=== PATIENT | female | born 1950 | race Caucasian/White ===

== ENCOUNTER 2019-11-01 13:50 | Outpatient (CLI) | payer MEDICARE, OTHER, SELFPAY ==
--- NOTE | 2019-11-01 15:14 | ECG_ITS ---
Measurements Intervals [place] Rate: 49 P: 39 W[place]: 204 QRS: -12 QRSD: 99 T: 30 QT: 424 QTc: 385 Interpretive Statements SINUS BRADYCARDIA WITH FIRST DEGREE AV BLOCK POOR R WAVE PROGRESSION, ANTERIOR LEADS BORDERLINE T WAVE ABNORMALITY- ANTERIOR LEADS BASELINE ARTIFACT- I, III, AVR, AVL ABNORMAL ECG Electronically Signed On 11-01-2019 15:29:38 CDT by Kameron Almanza D.O.
[2019-11-01 15:32] LABS: Basophils Percent Auto 0.5 % (0.2-1.2); Eosinophils Absolute Auto 0.3 K/mm3 (0-0.3); Eosinophils Percent Auto 4.3 % (0-4.4); Hematocrit 40.6 % (37.0-47.0); Hemoglobin 13.4 g/dL (12.0-15.0); Immature Granulocyte Absolute 0.01 K/mm3 (0.00-0.031); Immature Granulocyte Percent A 0.2 % (0-0.5); Lymphocytes Absolute Auto 2.29 K/mm3 (0.9-3.2); Lymphocytes Percent Auto 35.3 % (18.3-44.2); Mean Corpuscular Hemoglobin 31.2 pg (26-34); Mean Corpuscular Volume 94.6 fl (80-100); Mean Platelet Volume 9.9 fl (7.4-10.4); Monocytes Absolute Auto 0.4 K/mm3 (0.1-0.6); Monocytes Percent Auto 6.8 % (2.6-8.5); Neutrophils Absolute Auto 3.4 K/mm3 (1.3-6.7); Neutrophils Percent Auto 52.9 % (45.5-73.1); Platelet Count Result 157 k/mm3 (150-375); Red Blood Count 4.29 M/mm3 (4.2-5.4); Red Cell Distribution Width 12.8 % (11.5-14.5); White Blood Count 6.5 K/mm3 (4.5-10.0)
[2019-11-01 15:42] LABS: Partial Thromboplastin Time 32.6 SECONDS (22.3-36.8)
[2019-11-01 15:43] LABS: Alkaline Phosphatase 65 U/L (38-126); Anion Gap 5 mmol/L (8-16); Aspartate Amino Transferase 20 U/L (14-36); Bilirubin,Total 0.3 mg/dL (0.2-1.3); Blood Urea Nitrogen 17 mg/dL (7-17); Calcium 8.9 mg/dL (8.4-10.2); Carbon Dioxide 29 mmol/L (22-30); Chloride 103 mmol/L (98-107); Estimated Glomerular Filt Rate > 60; Glucose 98 mg/dL (65-105); Potassium 4.5 mmol/L (3.4-5.0); Sodium 137 mmol/L (137-145)
[2019-11-01 15:59] LABS: INR 1.7; Prothrombin Time 19.7 Seconds (11.1-14.7)
[2019-11-01 16:36] LABS: Alanine Aminotransferase < 4 U/L (4-35)
== END 2019-11-01 13:51 | disposition home or self-care (01) ==
PROVIDERS: PCP Family Medicine; Visit Provider Urology
DX: N81.4 Uterovaginal prolapse, unspecified (principal); Z87.891 Personal history of nicotine dependence; I44.0 Atrioventricular block, first degree
CPT/HCPCS: 36415; 80053; 85025; 85610; 85730; 86850; 86900; 86901; 87077; 87086; 87088; 87186; 93005

== ENCOUNTER 2019-11-04 00:39 | Outpatient (CLI) | payer MEDICARE, OTHER, SELFPAY ==
[2019-11-04 19:29] LABS: SARS-CoV-2 RNA PCR Negative
== END 2019-11-04 00:40 | disposition home or self-care (01) ==
LOC: ANHCOVIDDT 00:39
PROVIDERS: Visit Provider Urology
DX: Z01.812 Encounter for preprocedural laboratory examination (principal); Z20.828 Contact with and (suspected) exposure to other viral communicable diseases
CPT/HCPCS: 87635; C9803; U0003

== ENCOUNTER 2019-11-07 00:41 | Day surgery (SDC) | payer MEDICARE, OTHER, SELFPAY ==
[2019-11-01 14:18] VITALS: BMI 26.5
[2019-11-01 14:19] VITALS: BP 96/58; PULSE 56; RESP 16; TEMP 36.1; O2SAT 96
--- NOTE | 2019-11-02 07:56 | PM.IMHP ---
H&P: HPI History of Present Illness Date/Time: 11/02/19 07:56 Chief complaint: Uterine Prolapse, Stress Incontinence Narrative: Francisco Qiu is a 69 year old female Who is admitted for robotic supracervical hysterectomy and bilateral salpingo-oophorectomy who as well as a robotic sacral colpopexy. She has known uterine prolapse. She has been on satisfied with the pessary risks and benefits reviewed including but not exclusive of , aspiration pneumonia, bleeding, transfusion, perforation injury to bowel, bladder, ureters, or other internal organs with need for laparotomy. She voiced good understanding. She had all questions answered. She received the [employer] handout entitled hysterectomy as well as the div in she handout. She asked to proceed Review of Systems Review of Systems: All systems reviewed & are unremarkable except as noted in HPI and below PMFSH Social History Social History Smoking packs per day: 1 Smoking cigarettes per day: 20.0 Years smoked: 30 Smoking pack-years: 30.00 Smoking status: Former smoker Smoking end date: 03/09/06 Alcohol intake: former Substance use: never Spiritual care concerns: No Meds Home Medications and Allergies Home Medications Medication Instructions Recorded Confirmed Type carbidopa-levodopa 1 tablet PO QID 11/01/19 11/01/19 History carboxymethylcellulose sodium 1 drp OPHTHALMIC (EYE) QID 11/01/19 11/01/19 History [TheraTears] dexamethasone [Maxidex] 1 drp LEFTEYE EVERY OTHER DAY 11/01/19 11/01/19 History diphenhydramine HCl [Benadryl] 25 mg PO QAM 11/01/19 11/01/19 History oxycodone-acetaminophen 1 tablet PO QID 11/01/19 11/01/19 History primidone 50 mg PO BID 11/01/19 11/01/19 History ropinirole [Requip] 5 mg PO QID 11/01/19 11/01/19 History timolol maleate 1 drp LEFTEYE DAILY 11/01/19 11/01/19 History warfarin 1 mg PO DAILY 11/01/19 11/01/19 History warfarin 8 mg PO DAILY 11/01/19 11/01/19 History Allergies Allergy/AdvReac Type Severity Reaction Status Date / Time No Known Allergies Allergy Unverified 08/25/20 14:06 Vital Signs Vital Signs - 24 hr 11/01/19 14:19 Temperature 96.9 F L Pulse Rate 56 L Respiratory Rate 16 Blood Pressure 96/58 L Pulse Oximetry 96 Exam Const: General: no acute distress Eyes: General: appearance normal, both eyes and all related structures Neck: Neck: supple and no JVD Thyroid: thyroid normal Resp: Effort & Inspection: normal respiratory effort Auscultation: clear to auscultation bilaterally Cardio: Rate: regular rate Rhythm: regular rhythm GI: Inspection: non-distended GI Palp: Yes Soft to palpation, No Tenderness to palpation present (GI) and No Guarding due to palpation present (GI) Auscultation: normal bowel sounds : General: Yes bladder normal to inspection External Female Exam: Abnormal introitus Speculum Exam - Vagina: normal appearance of the vagina Bimanual exam- vagina & uterus: uterine mobility normal ( complete uterine pr) and Uterus displaced Bimanual Exam- Adnexa, other: normal adnexae Skin: General skin exam: no rashes or lesions noted Extrem: General: normal to inspection and no edema Psych: Mental Status: mental status grossly normal Affect: normal affect Assessment and Plan Additional Plan impression: Uterine prolapse Plan: Robotic supracervical hysterectomy and bilateral salpingo-oophorectomy
--- NOTE | 2019-11-06 07:33 | P.HP_ITS ---
H&P: HPI History of Present Illness Date/Time: 11/06/19 07:33 Chief complaint: Uterine Prolapse, Stress Incontinence Narrative: Francisco Qiu is a 69 year old female with uterine prolapse and RAMAN [facility] Social History Social History Smoking packs per day: 1 Smoking cigarettes per day: 20.0 Years smoked: 30 Smoking pack-years: 30.00 Smoking status: Former smoker Smoking end date: 03/09/06 Alcohol intake: former Substance use: never Spiritual care concerns: No Meds Home Medications and Allergies Home Medications Medication Instructions Recorded Confirmed Type carbidopa-levodopa 1 tablet PO QID 11/01/19 11/01/19 History carboxymethylcellulose sodium 1 drp OPHTHALMIC (EYE) QID 11/01/19 11/01/19 History [TheraTears] dexamethasone [Maxidex] 1 drp LEFTEYE EVERY OTHER DAY 11/01/19 11/01/19 History diphenhydramine HCl [Benadryl] 25 mg PO QAM 11/01/19 11/01/19 History oxycodone-acetaminophen 1 tablet PO QID 11/01/19 11/01/19 History primidone 50 mg PO BID 11/01/19 11/01/19 History ropinirole [Requip] 5 mg PO QID 11/01/19 11/01/19 History timolol maleate 1 drp LEFTEYE DAILY 11/01/19 11/01/19 History warfarin 1 mg PO DAILY 11/01/19 11/01/19 History warfarin 8 mg PO DAILY 11/01/19 11/01/19 History Allergies Allergy/AdvReac Type Severity Reaction Status Date / Time No Known Allergies Allergy Unverified 11/01/19 14:06 Exam Const: General: no acute distress HENMT: Mouth: Yes moist mucous membranes Eyes: EOM: EOMs intact bilaterally Neck: Neck: supple Resp: Effort & Inspection: normal respiratory effort GI: GI Palp: Yes Soft to palpation : Other: [place] at +5 Skin: General skin exam: normal color Extrem: General: normal to inspection Assessment and Plan Assessment and plan (1) Uterine prolapse: Code(s): N81.4 - Uterovaginal prolapse, unspecified Status: Acute Assessment and Plan: Robotic Colpopexy (2) RAMAN (stress urinary incontinence, female): Code(s): N39.3 - Stress incontinence (female) (male) Status: Acute Assessment and Plan: Urethral sling
[2019-11-07] VITALS (17 sets, daily range): BP systolic 109–146; BP diastolic 67–99; PULSE 51–80; RESP 13–22; TEMP 35.8–36.9; O2SAT 93–100
--- NOTE | 2019-11-07 06:19 | WPDHPUPDATE1 ---
History and Physical Update Update Date/Time: 11/07/19 06:19 History and Physical has been reviewed, including an updated exam of the patient. There are NO changes in the patient's condition. Risks, benefits, and alternatives have been discussed and questions answered. Patient agrees to proceed with procedure.
--- NOTE | 2019-11-07 07:26 | WPDHPUPDATE1 ---
History and Physical Update Update Date/Time: 11/07/19 07:26 History and Physical has been reviewed, including an updated exam of the patient. There are NO changes in the patient's condition. Risks, benefits, and alternatives have been discussed and questions answered. Patient agrees to proceed with procedure.
--- NOTE | 2019-11-07 09:20 | WPDANESEPP ---
Anes - Eval Pre Procedure Procedure: Operation Date: 11/07/19 12:00 Proposed Procedures p Robotic Sacrocolpopexy With Urethral Sling - Ede Walsh MD s Robotic Assisted Supracervical Hysterectomy, Bilateral Salpingo-Oophorectomy - Cesar Gardner MD Date/Time: 11/07/19 09:20 Pre Op Diagnosis: Uterine Prolapse, Stress Incontinence Patient Data Age: 69 Gender: F Height: 5 ft 3 in Weight: 67.9 kg Last Vital Signs Temp 96.9 F L 11/01/19 14:19 Pulse 56 L 11/01/19 14:19 Resp 16 11/01/19 14:19 BP 96/58 L 11/01/19 14:19 Pulse Ox 96 11/01/19 14:19 Allergies Allergy/AdvReac Type Severity Reaction Status Date / Time No Known Allergies Allergy Unverified 11/01/19 14:06 Home Medications Medication Instructions Recorded Confirmed Type carbidopa-levodopa 1 tablet PO QID 11/01/19 11/01/19 History carboxymethylcellulose sodium 1 drp OPHTHALMIC (EYE) QID 11/01/19 11/01/19 History [TheraTears] dexamethasone [Maxidex] 1 drp LEFTEYE EVERY OTHER DAY 11/01/19 11/01/19 History diphenhydramine HCl [Benadryl] 25 mg PO QAM 11/01/19 11/01/19 History oxycodone-acetaminophen 1 tablet PO QID 11/01/19 11/01/19 History primidone 50 mg PO BID 11/01/19 11/01/19 History ropinirole [Requip] 5 mg PO QID 11/01/19 11/01/19 History timolol maleate 1 drp LEFTEYE DAILY 11/01/19 11/01/19 History warfarin 1 mg PO DAILY 11/01/19 11/01/19 History warfarin 8 mg PO DAILY 11/01/19 11/01/19 History Patient hx anesthesia problems: none Family hx anesthesia problems: none PMFSH Past Medical History Medical History (Updated 11/07/19 @ 09:25 by Marshal Foster CRNA) Arthritis Back pain DDD (degenerative disc disease) Depression DVT (deep venous thrombosis) Factor 5 Leiden mutation, heterozygous Hiatal hernia History of TIA (transient ischemic attack) Parkinsons disease Scoliosis RAMAN (stress urinary incontinence, female) Uterine prolapse Surgical History Surgical History Previous back surgery Social History Social History Smoking packs per day: 1 Smoking cigarettes per day: 20.0 Years smoked: 30 Smoking pack-years: 30.00 Smoking status: Former smoker Smoking end date: 03/09/06 Alcohol intake: former Alcohol use details: SOCIALLY 50 YEARS AGO Substance use: never Living arrangements: alone Spiritual care concerns: No Exam Day of Procedure 11/07/19 09:20 Patient weight: overweight Neurological: alert and oriented Risks: VR49 SINUS BRADYCARDIA WITH FIRST DEGREE AV BLOCK POOR R WAVE PROGRESSION, ANTERIOR LEADS BORDERLINE T WAVE ABNORMALITY- ANTERIOR LEADS BASELINE ARTIFACT- I, III, AVR, AVLABNORMAL ECG
--- NOTE | 2019-11-07 10:16 | WPDANESEFPP ---
Anes - Eval Final PreProcedure Day of Procedure 11/07/19 10:16 Patient weight: overweight Heart: regular rate and rhythm Lungs: clear to auscultation Airway: Mallampati scale class II Neurological: alert and oriented Last oral intake: >/= 8 hours ASA classification: III Emergent: no Anesthetic plan: proceed Anesthesia type and monitoring: general ETT and standard monitoring Informed Consent: The patient's anesthetic plan and its attendant risks and benefits were discussed with the patient/family/POA. Questions were solicited and answers provided to the satisfaction of the patient/family/POA.
[2019-11-07] MEDS: LACTATED RINGERS 1,000 ML 30 ML IV CONT ×2 (10:33→14:33)
[2019-11-07 10:54] LABS: Prothrombin Time 12.5 Seconds (11.1-14.7)
[2019-11-07 10:55] LABS: Partial Thromboplastin Time 26.4 SECONDS (22.3-36.8)
[2019-11-07] MEDS: HEPARIN SODIUM 5,000 UNITS/ML VIAL 5000 UNITS SUB-Q (11:10)
[2019-11-07] MEDS: metroNIDAZOLE 500 MG/ISO 100ML 500 MG/100 ML BAG 100 MG IVPB ×2 (11:59→19:54)
[2019-11-07] MEDS: ceFAZolin 2 GM/D5W 50 ML 2 GM/50 ML BAG IVPB (11:59)
[2019-11-07] MEDS: BUPIVACAINE/EPINEPHRINE 0.25% 50 ML VIAL INFILTRATE (12:41)
--- NOTE | 2019-11-07 12:47 | P.OP_ITS ---
Procedure Note - Detailed Date of procedure: 11/07/19 Pre-op diagnosis: Uterine Prolapse, Stress Incontinence Surgeon: Cesar Gardner MD Postop diagnosis: Uterine prolapse / stress urinary incontinence Procedure: Robotic supracervical hysterectomy and bilateral salpingo- oophorectomy EBL: 5cc Anesthesia: General endotracheal Complications: None. This was done in conjunction with a robotic sacral colpopexy and sling with Dr. Walsh Findings: Uterine prolapse /benign ovaries and tubes Description of procedure: The patient is prepped draped in the normal sterile fashion and placed in the dorsal lithotomy position. Under excellent general endotracheal anesthesia weighted speculum was placed in the posterior fornix of vagina. Anterior lip of the cervix grasped with a single-tooth tenaculum and the Lucero's cannula inserted to the cervix. This was attached to the single- tooth to be used for uterine manipulation. Next the [address] [place] [address] lauren proceeded with placing the ports and docking the robot. Please see his operative report for full details. Attention was Was turned to the group home counselor. There are many adhesions in the right lower quadrant and these were sharply dissected using occasional cautery to help visualized. The left round ligament was grasped, burned, cut and anteriorly a bladder flap was formed reflecting the bladder caudally from the cervix and uterus to the opposite round ligament was clamped, burned, cut. Next the left infundibulopelvic structure was skeletonized to remove the left ovary and tube this was serially clamped, burned, cut and brought to the level of the previously cut round ligament. In like fashion the right infundibulopelvic structures were grasped, burned, cut and brought to the level of the previously cut round ligament next the cardinal and broad ligaments on the left were serially skeletonized these were clamped, burned, cut and brought down the lateral edge of the uterus. In like fashion the cardinal ligaments on the right were serially clamped, burned, cut and brought to level of of the uterine vessels the uterine vessels on the right were then grasped, burned, cut. In like fashion the uterine vessels on the left were serially clamped, burned, cut. A supracervical incision was made and the uterus ovaries and tubes were placed in an Endo-Catch. Blood loss was estimated at5cc to this point and Dr. Walsh began his portion of the procedure. There were no complications to this time.
--- NOTE | 2019-11-07 14:32 | PM.PROC ---
Procedure Note - Detailed Date of procedure: 11/07/19 Pre-op diagnosis: Uterine Prolapse, Stress Incontinence Uterine prolapse Stress urinary incontinence Post-op diagnosis: same Procedure performed: Robotic assisted laparoscopic sacral colpopexy Mid urethral sling (transobturator sling) Cystoscopy Description of procedure: She understood the risks of bleeding, infection, damage to surrounding organs, bowel injury, bowel obstruction, recurrence of prolapse, persistent or recurrent stress incontinence, mesh related complications including exposure and extrusion, diskitis, postoperative voiding dysfunction including incontinence and retention, hip and leg pain, dyspareunia, and she agrees to proceed. She was correctly identified and informed consent was obtained. She was brought to the operating room. She was given general anesthesia. She was placed in the dorsal lithotomy position. All pressure points were padded. She was given appropriate perioperative antibiotics. Time-out performed. I anesthetized the skin 3 fingerbreadths cephalad to the umbilicus. I incised the skin. I dissected down to locate the fascia. I grasped the fascia with Antonio clamps. I entered the fascia sharply. I placed Vicryl sutures for later fascial closure. I placed a midline trocar. Under direct vision 2 additional trocars were placed on the right and left upper quadrant. She was placed in steep Trendelenburg and the robot was docked. Her general ophthalmologist performed the portion of the procedure and left the specimen and a sac which was extracted. I then sat at the console. With the Sizer in the vagina I created a plane on the anterior and posterior vaginal wall. This was done for several cm taking great care not to injure the vagina, bladder, or rectum. I introduced the mesh into the abdomen. I sewed the anterior leaflet of mesh on the anterior vaginal wall and posterior leaf of the mesh on the posterior vaginal wall with several [place]-Christopher sutures taking great care not to go through and through. I then reflected the colon laterally. I opened up the posterior peritoneum over the sacral promontory. I carried this into the cul-de-sac. I kept the ureters lateral. I freed up the edges. I located the anterior longitudinal ligament of the sacrum. I tensioned the mesh appropriately. I did a vaginal exam to ensure prolapse reduction without undue tension. I then sewed the proximal leaflet of mesh onto the ligament with 3 sutures of 2 0 [place]-Christopher. Next the mass was meticulously retroperitonealized with a running 2 0 Monocryl suture. I allowed the colon to go back into its normal anatomic location. There is no signs of any impingement or stricturing. The abdomen was exited. Fascia was closed. Skin was closed with Monocryl and glue. She was repositioned and prepped for urethral sling. I marked out the thigh incisions. I anesthetize the skin and made those incisions. I anesthetized the anterior vaginal wall over the mid urethra. I made a 1 cm incision. I dissected out laterally taking great care not to injure the urethra or the vaginal wall. I next passed the helical trocars to 1st on the left and then on the right. This was done from the thigh incision towards the vaginal incision. The sling was connected to the trocars and brought out through the thigh incision. I tensioned the sling appropriately. I cut and removed the plastic sheaths. I then closed the incision with 2 0 Vicryl. I then performed cystoscopy. The bladder is examined. There was no tumors, stones, foreign bodies, surgical artifact. Both ureters were seen to excrete clear yellow urine. There is no surgical artifact in the urethra. Catheter was then replaced. She was awakened and transferred to the PACU in stable condition. Anesthesia: GLMA Surgeon: Ede Walsh MD Drains: Yes (Dempsey catheter) Packing: Yes Complications: No immediate complications Condition: stable Disposition: PACU
[2019-11-07] MEDS: ONDANSETRON INJ 4 MG/2 ML VIAL IV PUSH (14:53)
[2019-11-07] MEDS: MIDAZOLAM HCL 2 MG/2 ML VIAL 1 MG IV PUSH (15:01)
--- NOTE | 2019-11-07 15:45 | SUR.PHASEI ---
1505: Dr. Strickland at the bedside to assess patient.
--- NOTE | 2019-11-07 16:39 | SUR.PHASEI ---
Difficult to get accurate BPs and pulse ox readings d/t movement from Parkinson's.
--- NOTE | 2019-11-07 16:48 | PC.NURSE ---
This patient, Francisco Qiu, was received from PACU on 11/07/19 at 1648. Patient/family oriented to unit policies and routines
[2019-11-07] MEDS: KCL 20 MEQ/D5/0.45% SOD CHL 1,000 ML 100 ML IV CONT (17:21)
[2019-11-07] MEDS: MORPHINE SULFATE 2 MG/ML INJ IV PUSH (17:21)
[2019-11-07] MEDS: CARBIDOPA/LEVODOPA 25/250 MG TABLET 1 TABLET PO (20:04)
[2019-11-07] MEDS: rOPINIRole HCL 1 MG TABLET 5 MG PO (20:07)
[2019-11-07] MEDS: oxyCODONE/ACETAMINOPHEN 5-325 MG TABLET 1 TABLET PO (20:15)
[2019-11-07] MEDS: KETOROLAC 15 MG/ML VIAL (*BKC) IV PUSH (20:15)
[2019-11-08 00:45] VITALS: BP 100/55; PULSE 80; RESP 14; TEMP 36.6; O2SAT 95
[2019-11-08] MEDS: ACETAMINOPHEN 325 MG TABLET 650 MG PO (00:51)
[2019-11-08] MEDS: KCL 20 MEQ/D5/0.45% SOD CHL 1,000 ML 100 ML IV CONT (02:19)
[2019-11-08] MEDS: metroNIDAZOLE 500 MG/ISO 100ML 500 MG/100 ML BAG 100 MG IVPB ×2 (03:14→11:21)
[2019-11-08] MEDS: KETOROLAC 15 MG/ML VIAL (*BKC) IV PUSH ×2 (04:22→09:59)
[2019-11-08 04:25] VITALS: BP 97/59; PULSE 60; RESP 14; TEMP 36.6; O2SAT 94
[2019-11-08 04:30] VITALS: PULSE 60; RESP 14; O2SAT 94
--- NOTE | 2019-11-08 06:36 | PM.DS ---
DS: Admitting Diagnosis Admitting Diagnosis Admitting Diagnosis: Uterine Prolapse, Stress Incontinence DS: Summary Time Spent with Patient Time attestation: Total time spent providing and/or coordinating discharge services: Exam Const: General: no acute distress Eyes: General: appearance normal, both eyes and all related structures Neck: Neck: supple and no JVD Thyroid: thyroid normal Resp: Effort & Inspection: normal respiratory effort Auscultation: clear to auscultation bilaterally Cardio: Rate: regular rate Rhythm: regular rhythm GI: Inspection: non-distended GI Palp: Yes Soft to palpation, No Tenderness to palpation present (GI) and No Guarding due to palpation present (GI) Auscultation: normal bowel sounds : General: Yes bladder normal to palpation External Female Exam: normal external appearance Speculum Exam - Vagina: normal vaginal discharge and No vaginal bleeding Speculum Exam - Cervix: nontender Bimanual exam- vagina & uterus: bladder normal to palpation and No Cervical tenderness present OB/external & speculum: No vaginal bleeding Skin: General skin exam: no rashes or lesions noted Extrem: General: normal to inspection and no edema Psych: Mental Status: mental status grossly normal Affect: normal affect DS: Data Data Completed and Pending Pending studies at discharge: Pending at discharge 11/07/19 12:49 Surgical [PTH] Routine Labs on day of discharge: Labs from last 24 hours 11/07/19 10:26 PT 12.5 D INR 1.0 APTT 26.4 Discharge Plan Discharge Patient Disposition: Home, Self-Care Discharge Instructions: No lifting >20lb, exercise for 6 weeks No tub bath or pool for 2 weeks No intercourse for 6 weeks Stand Alone Forms: General Discharge Instructions Follow-up/Referrals: Ede Walsh MD [Physician] - (in 1 week and in 6 weeks) Discharge Medications: New docusate sodium [Colace] 100 mg capsule 100 mg PO BID Qty: 60 RF: 0 oxycodone-acetaminophen [Percocet] 10-325 mg tablet 1 tablet PO Q6H PRN (Reason: pain) Qty: 20 RF: 0 Continued primidone 50 mg tablet 50 mg PO BID RF: 0 carbidopa-levodopa 25-250 mg tablet 1 tablet PO QID RF: 0 oxycodone-acetaminophen 10-325 mg tablet 1 tablet PO QID RF: 0 diphenhydramine HCl [Benadryl] 25 mg Capsule 25 mg PO QAM RF: 0 Maxidex 0.1 % drops,suspension 1 drp LEFTEYE EVERY OTHER DAY RF: 0 timolol maleate 0.5 % drops 1 drp LEFTEYE DAILY RF: 0 ropinirole [Requip] 5 mg tablet 5 mg PO QID RF: 0 TheraTears 0.25 % Dropperette 1 drp OPHTHALMIC (EYE) QID RF: 0 Held warfarin 4 mg tablet 8 mg PO DAILY RF: 0 Hold Instructions: Resume on 11/10/19. warfarin 1 mg tablet 1 mg PO DAILY RF: 0 Hold Instructions: Resume on 11/09/19.
--- NOTE | 2019-11-08 06:37 | PM.OBPNVD ---
OB - PN: Subj Subjective Date/time seen: 11/08/19 06:37 Patient comments: no complaints and pain well controlled OB - PN: Obj Data Labs Labs: Laboratory Results - last 24 hr 11/07/19 10:26 PT 12.5 D INR 1.0 APTT 26.4 OB - PN A/P Plan day: 1 Plan: routine care and follow up 6 weeks (4 weeks) Time Spent With Patient Time: Total time spent is greater than 50% in coordination of care (as documented) at patient's floor/unit and/or counseling patient: Time with patient: less than 15 minutes Review of Systems Review of Systems: All systems reviewed & are unremarkable except as noted in HPI and below Exam Const: General: no acute distress Eyes: General: appearance normal, both eyes and all related structures Neck: Neck: supple and no JVD Thyroid: thyroid normal Resp: Effort & Inspection: normal respiratory effort Auscultation: clear to auscultation bilaterally Cardio: Rate: regular rate Rhythm: regular rhythm GI: Inspection: normal to inspection and incision (cdi) Percussion: Yes normal to percussion : General: Yes bladder normal to palpation External Female Exam: normal external appearance Speculum Exam - Vagina: normal vaginal discharge and No vaginal bleeding Speculum Exam - Cervix: nontender Bimanual exam- vagina & uterus: bladder normal to palpation and No Cervical tenderness present OB/external & speculum: No vaginal bleeding Skin: General skin exam: no rashes or lesions noted Extrem: General: normal to inspection and no edema Psych: Mental Status: mental status grossly normal Affect: normal affect
[2019-11-08] MEDS: DOCUSATE SODIUM 100 MG CAPSULE PO (07:24)
[2019-11-08] MEDS: oxyCODONE/ACETAMINOPHEN 5-325 MG TABLET 1 TABLET PO ×2 (07:25→13:03)
--- NOTE | 2019-11-08 07:42 | WPDANESPN ---
Anes - Prog Note Post-Op Date/Time: 11/08/19 07:42 Cardiovascular status: normal Respiratory status: normal Airway patency: baseline Mental status: baseline Post-Op hydration status: normal Vital Signs: Last Vital Signs Temp 36.6 C 11/08/19 04:25 Pulse 60 11/08/19 04:30 Resp 14 11/08/19 04:30 BP 97/59 L 11/08/19 04:25 Pulse Ox 94 11/08/19 04:30 I/O: Intake & Output 11/07/19 11/07/19 11/08/19 15:59 23:59 07:59 Intake Total 50 760 1120 Output Total 350 600 350 Balance -300 160 770 11/07/19 10:26 PT 12.5 D INR 1.0 APTT 26.4 Post-procedural complaints: none Patient Feedback: Patient satisfied with anesthetic care.
[2019-11-08 07:55] VITALS: BP 111/56; PULSE 54; RESP 20; TEMP 36.3
[2019-11-08] MEDS: CARBIDOPA/LEVODOPA 25/250 MG TABLET 1 TABLET PO ×2 (10:00→13:03)
[2019-11-08] MEDS: rOPINIRole HCL 1 MG TABLET 5 MG PO ×2 (10:01→13:03)
[2019-11-08] MEDS: ENOXAPARIN 30 MG/0.3 ML SYRINGE SUB-Q (10:22)
[2019-11-08] MEDS: PRIMIDONE 50 MG TABLET PO (10:22)
[2019-11-08 13:00] VITALS: BP 153/71; PULSE 94; RESP 22; TEMP 36.8
--- NOTE | 2019-11-08 14:08 | PC.NURSE ---
1250- Entered pt. room. Pt. showing signs of tardie dyskinesia like movement. States she was choking on her chocolate ice cream and had to stick finger down her throat. Pt. spitting up thick mucous. Vitals 153/71, 74, 22. O2 applied at 6L per nasal cannula. 1315- Pt. doing well. States that she gets choked like that at times and it eventually clears. Pulse oximeter 97%. Relaxed and oriented to person, place and time. Dr. Mustapha Donahue notified. Status report given including vital signs and pt. stating that she feels fine and is comfortable with discharge. No further orders received at this time. 1330- Pt. doing well. Ambulated to bathroom with slow steady gait. States that she is looking forward to discharge.
== END 2019-11-08 14:47 | disposition home or self-care (01) ==
LOC: ANHSURGERY 11:47 → ANHOB2 16:47
PROVIDERS: Obstetrics & Gynecology; PCP Family Medicine; Visit Provider Urology
PROC: (CPT 57425; principal; 2019-11-07 12:00)
PROC: 0UT94ZZ Resection of Uterus, Percutaneous Endoscopic Approach (ICD-10-PCS; CPT 57425; 2019-11-07 12:00)
DX: N81.4 Uterovaginal prolapse, unspecified (principal); N39.3 Stress incontinence (female) (male); N84.0 Polyp of corpus uteri; D39.11 Neoplasm of uncertain behavior of right ovary; G20 Parkinson's disease; D68.51 Activated protein C resistance; Z86.73 Personal history of transient ischemic attack (TIA), and cerebral infarction without residual deficits; Z86.718 Personal history of other venous thrombosis and embolism; Z79.01 Long term (current) use of anticoagulants; Z87.891 Personal history of nicotine dependence; Z79.899 Other long term (current) drug therapy
CPT/HCPCS: 58542; 57425; 57288; S2900; 36415; 85610; 85730; 88307; 99199; A9270; C1758; C1769; C1771; C1781; J0690; J1100; J1644; J1650; J1885; J2250; J2270; J2405; J2704; J2710; J3010; J3480; J7030; J7120

== ENCOUNTER 2019-11-18 10:26 | Inpatient (IN) | payer MEDICARE, OTHER, SELFPAY ==
[2019-11-18] VITALS (16 sets, daily range): BP systolic 104–143; BP diastolic 58–75; PULSE 45–81; RESP 13–23; TEMP 36.1–36.3; O2SAT 90–99
--- NOTE | ~2019-11-18 | US_ITS ---
EXAMINATION: US soft tissue abdomen DATE: 11/28/2019 15:13 INDICATION: Right lower quadrant abdominal mass. TECHNIQUE: Multiple grayscale and Doppler ultrasound images of the abdomen were obtained. COMPARISON: CT abdomen and pelvis 11/18/2019 FINDINGS: In the right lower quadrant of the abdomen, there is a 2.7 x 1.5 cm mixed cystic and solid hyperechoic subcutaneous mass. The cystic component measures 2.3 x 1.1 x 1.6 cm. IMPRESSION: 1. Mixed solid and cystic subcutaneous mass in right lower quadrant, new from 11/18/2019, likely a hep catracho injection site. Reviewed, dictated and finalized at location [facility]. IMPRESSION: 1. Mixed solid and cystic subcutaneous mass in right lower quadrant, new from , likely a heparin injection site.
--- NOTE | ~2019-11-18 | CT_ITS ---
EXAMINATION: CT abdomen pelvis w con DATE: 11/18/2019 12:57 INDICATION: Abdominal pain. Bladder surgery, hysterectomy November 07, 2019 TECHNIQUE: Computed tomography (CT) of the abdomen and pelvis was performed with 100 cc Omnipaque 350 intravenous contrast. Automated exposure control and iterative reconstruction technique were employe d. Exam dose: 459.15 mGy-cm total exam DLP. COMPARISON: None. FINDINGS: There is subcutaneous emphysema of the left and right chest and abdominal mora. No pneumot horax or pneumomediastinum is identified in the included lower thoracic images. There is minimal discoid atelectasis or scarring in the lower lung zones. Normal heart size. No pericardial or pleural effusion. There is a large hiatal hernia. Diffuse hepatic steatosis. No hepatic space-occupying mass lesion. The gallbladder appears unremarkab le. No bile duct or pancreatic duct dilatation. No pancreatic mass lesion or calcification. 1.35 x 2.2 cm left adrenal mass, most likely an adrenal adenoma if there is no history of primary mal ignancy. 7 mm upper pole left renal cyst. Pinpoint nonobstructing lower pole left renal calculus. 4.5 mm upper pole right renal cyst. 4 x 4.5 cm right renal cyst. No left or right ureteral calculus or hydroureteronephrosis. No abdominal aortic aneurysm. No intraperitoneal or retroperitoneal or pelvic mass lesion or adenopat hy or ascites is evident. Status post hysterectomy. There is mild air in the nondependent urinary bladder and mild diffuse thic kening of the urinary bladder wall. There is some matted small bowel loops in the lower midpelvis without intervening fat tissue, but the re is no apparent bowel obstruction, bowel wall thickening, pneumatosis or intraperitoneal free air. Normal appendix. There is severe anterior wedge compression fracture deformity of T9, with sclerosis. There is mild compression fracture deformity of L1 and moderate compression fracture deformity of L5 with cupping of the superior vertebral endplates. There is severe degenerative disease at L5-S1. IMPRESSION: Extensive subcutaneous emphysema of the chest and abdominal mora Large hiatal hernia Diffuse hepatic steatosis Probable 1.3 x 2.2 cm left adrenal adenoma Bilateral renal cysts Pinpoint nonobstructing lower pole left renal calculus Status post hysterectomy Multiple compression fracture deformities of the thoracic and lumbar spine Reviewed, dictated and finalized at [facility]. Reviewed, dictated and finalized at location [facility].
[2019-11-18 11:01] LABS: Basophils Percent Auto 0.2 % (0.2-1.2); Eosinophils Absolute Auto 0.2 K/mm3 (0-0.3); Eosinophils Percent Auto 1.7 % (0-4.4); Hematocrit 38.9 % (37.0-47.0); Hemoglobin 12.9 g/dL (12.0-15.0); Immature Granulocyte Absolute 0.04 K/mm3 (0.00-0.031); Immature Granulocyte Percent A 0.5 % (0-0.5); Lymphocytes Absolute Auto 1.49 K/mm3 (0.9-3.2); Lymphocytes Percent Auto 17.1 % (18.3-44.2); Mean Corpuscular HGB Conc 33.2 g/dl (32-36); Mean Corpuscular Hemoglobin 30.9 pg (26-34); Mean Corpuscular Volume 93.3 fl (80-100); Monocytes Absolute Auto 0.5 K/mm3 (0.1-0.6); Monocytes Percent Auto 5.2 % (2.6-8.5); Neutrophils Absolute Auto 6.5 K/mm3 (1.3-6.7); Neutrophils Percent Auto 75.3 % (45.5-73.1); Platelet Count Result 286 k/mm3 (150-375); Red Blood Count 4.17 M/mm3 (4.2-5.4); Red Cell Distribution Width 13.1 % (11.5-14.5); White Blood Count 8.7 K/mm3 (4.5-10.0)
[2019-11-18 11:07] LABS: Prothrombin Time 22.4 Seconds (11.1-14.7)
[2019-11-18 11:08] LABS: Partial Thromboplastin Time 32.2 SECONDS (22.3-36.8)
[2019-11-18 11:10] LABS: Alanine Aminotransferase 8 U/L (4-35); Alkaline Phosphatase 64 U/L (38-126); Anion Gap 8 mmol/L (8-16); Aspartate Amino Transferase 17 U/L (14-36); Bilirubin,Total 0.4 mg/dL (0.2-1.3); Blood Urea Nitrogen 16 mg/dL (7-17); Calcium 8.9 mg/dL (8.4-10.2); Carbon Dioxide 24 mmol/L (22-30); Chloride 105 mmol/L (98-107); Estimated CRCL calculation 62 ml/min; Estimated Glomerular Filt Rate > 60; Glucose 122 mg/dL (65-105); Lipase 203 U/L (23-300); Sodium 137 mmol/L (137-145)
--- NOTE | 2019-11-18 12:15 | ED.GENADULT ---
HPI - General Adult General Chief complaint: Nausea/Vomiting/Diarrhea Stated complaint: post op n/v Time Seen by Provider: 11/18/19 12:15 Source: patient and family Mode of arrival: ambulatory Limitations: no limitations History of Present Illness HPI narrative: 69 years old white female presents with nausea and vomiting started overnight, last vomiting was 9 AM this morning. Patient denies any fever, chills neurology like no o wheeze, coughing or shortness of breath. Patient also denies any diarrhea. Patient is status post hysterectomy and bladder tuck on November 06. Related Data Home Medications Medication Instructions Recorded Confirmed Maxidex 1 drp LEFTEYE EVERY OTHER DAY 11/01/19 11/07/19 TheraTears 1 drp OPHTHALMIC (EYE) QID 11/01/19 11/07/19 carbidopa-levodopa 1 tablet PO QID 11/01/19 11/07/19 diphenhydramine HCl [Benadryl] 25 mg PO QAM 11/01/19 11/01/19 oxycodone-acetaminophen 1 tablet PO QID 11/01/19 11/07/19 primidone 50 mg PO BID 11/01/19 11/07/19 ropinirole [Requip] 5 mg PO QID 11/01/19 11/07/19 timolol maleate 1 drp LEFTEYE DAILY 11/01/19 11/07/19 warfarin 1 mg PO DAILY 11/01/19 11/07/19 warfarin 8 mg PO DAILY 11/01/19 11/07/19 Allergies Allergy/AdvReac Type Severity Reaction Status Date / Time No Known Allergies Allergy Verified 11/18/19 12:35 Review of Systems Review of Systems: Narrative: CONSTITUTIONAL: Denies fever, chills, or sweats. EYES: Denies visual changes, redness, or discharge. ENT: Denies rhinorrhea, congestion, sore throat, or otalgia. CARDIOVASCULAR: Denies chest pain, palpitations, or edema. RESPIRATORY: Denies cough or dyspnea. GASTROINTESTINAL: Denies abdominal pain, nausea, vomiting, or diarrhea. GENITOURINARY: Denies dysuria or hematuria. SKIN: Denies rash or itching. MUSCULOSKELETAL: Denies back pain, joint pain, or myalgia. NEUROLOGIC: Denies headache, numbness, or weakness. PSYCHIATRIC: Denies anxiety or depression. [facility] Past Medical History Medical History Arthritis Back pain DDD (degenerative disc disease) Depression DVT (deep venous thrombosis) Factor 5 Leiden mutation, heterozygous Hiatal hernia History of TIA (transient ischemic attack) Parkinsons disease Scoliosis RAMAN (stress urinary incontinence, female) Uterine prolapse Surgical History Surgical History Previous back surgery Social History Social History Smoking packs per day: 1 Smoking cigarettes per day: 20.0 Years smoked: 30 Smoking pack-years: 30.00 Smoking status: Former smoker Smoking end date: 03/09/06 Alcohol intake: former Substance use: never Gender identity (if verbalized by the patient): Female Sexual Orientation (if Verbalized by the Patient): Straight or Heterosexual Spiritual care concerns: No Exam Narrative: Exam Narrative: General appearance: Well-developed, well-nourished Skin: Normal color Head: Normocephalic, nontraumatic Eyes: Clear conjunctiva ENT: Oropharynx normal, ears normal, nose normal Neck: Supple, nontender Chest and respiratory: Airway patent, no respiratory distress, no accessory muscle use Heart: Regular rate/rhythm Abdomen: Soft, mild diffuse tenderness, no organomegaly, quiet bowel sounds Vascular: Normal peripheral pulses, normal capillary refill. Musculoskeletal: Normal range of motion, nontender back Neurologic: Alert and oriented ?3, [employer] is normal as tested, no gross motor deficit Course Course Emergency Course: Improving, no active vomiting at this time. My plan to get labs, CT abdomen and pelvis with I
[2019-11-18] MEDS: ONDANSETRON INJ 4 MG/2 ML VIAL IV PUSH (12:45)
[2019-11-18] MEDS: SODIUM CHLORIDE 0.9% IV 1,000 ML 999 ML IV CONT (12:45)
[2019-11-18 13:35] LABS: Add Urine Microscopic? YES; Appearance Urine Cloudy (Clear); Bacteria Urine Trace /hpf; Bilirubin Urine Negative (Negative); Blood Urine Negative (Negative); Color Urine Yellow (Yellow); Glucose Urine UA Negative (Negative); Ketones Urine Trace mg/dL (Negative); Leukocyte Esterase Ur 2+ LEU/UL (Negative); Mucus Urine Few /lpf; Nitrate Urine Positive (Negative); Protein Urine 1+ mg/dL (Negative); Squamous Epithelial Cell Urine Many /hpf (Few); Urobilinogen Urine Negative mg/dL (<2.0); WBC Urine >75 /hpf
[2019-11-18 13:48] LABS: Specific Grav Ur 1.046 (1.001-1.035)
--- NOTE | 2019-11-18 15:50 | ADMGEN ---
This patient, Francisco Qiu, was admitted to Medical Room 257-01. Patient/family oriented to hospital policies and general routines including ID bracelet, bed and alarms, visiting hours, pain management, procedures, bathroom and other care routines, personal items, smoking policy, room service/diet, and visiting hours. Valuables list has been completed. Information on how to activate the Rapid Response Team has been discussed. Patient/Family are encouraged to report perceived risks to care and to ask questions if they do not understand what they are told or what they should do.
[2019-11-18] MEDS: SODIUM CHLORIDE 0.9% IV 1,000 ML 125 ML IV CONT (16:57)
--- NOTE | 2019-11-18 20:38 | PM.IMHP ---
H&P: HPI History of Present Illness Date/Time: 11/18/19 20:38 Chief complaint: Urinary tract infection/vomiting Narrative: Francisco Qiu is a 69 year old female who had a laparoscopic hysterectomy due to uterine prolapse and a robotic assisted laparoscopic sacral colpopexy with bladder sling on 11/07/2019. The patient has chronic back pain and has been on Percocets. The patient stated that last night she did not sleep very well and was having a lot of discomfort in her right flank area. She was not having any urinary symptoms other than the right flank pain. She has had approximately 3 days ago she was checked in the office and did not have urinary tract infection at that time. The patient stated that she had been vomiting most of the night. I explained that the Percocets can make her sick to her stomach which she tells me that she has been on Percocets chronically. CT of the abdomen was read as extensive subcutaneous emphysema of the chest and abdominal mora. Large hiatal hernia. Diffuse hepatic steatosis. Probable 1.3 x 2.2 cm left adrenal adenoma. Bilateral renal cysts. Pinpoint nonobstructive lower pole left renal calculus. Status post hysterectomy. Multiple compression fractures deformity of the thoracic and lumbar spine. The patient was given IV Tylenol, IV fluids, Zofran, and ceftriaxone for the urinary tract infection in the emergency room. The patient stated she did not tried to eat anything and so she got to the floor and then she was able to keep down her regular diet. She has minimal discomfort at this time. Urine culture was sent. The urine has many squamous epithelial cells. And greater than 75,000 wbc's. patient has no fever no chills no cough. No shortness of breath. Date of service 11/18/2019 Review of Systems Review of Systems: All systems reviewed & are unremarkable except as noted in HPI and below Constitutional: Constitutional: Reports as per HPI and Reports no additional constitutional complaints Eyes: Eyes: Reports as per HPI and Reports no additional eye complaints ENT: Reports system reviewed and no additional complaints, except as documented and Reports Normal hearing present Cardiovascular: Cardiovascular: Reports no additional cardiovascular complaints Respiratory: Respiratory: Reports no additional respiratory complaints and Reports no additional respiratory complaints Gastrointestinal: Gastrointestinal: Reports as per HPI and Reports no additional gastrointestinal complaints Musculoskeletal: Musculoskeletal: Reports no additional musculoskeletal complaints Integumentary/Breasts: Skin/Breast: Reports system reviewed and no additional complaints, except as docu and Reports as per HPI Neurologic: Reports system reviewed and no additional complaints, except as documented, Reports as per HPI and Reports Normal hearing present Psychiatric: Psychiatric: Reports no additional psychiatric complaints and Reports as per HPI Endocrine: Endocrine: Reports no additional endocrine complaints Hematologic/Lymphatic: Hematologic/Lymphatic: Reports no additional hematologic/lymphatic complaints Allergic/Immunologic: Allergic/Immunologic: Reports no additional allergic/immunologic complaints [facility] Past Medical History Medical History (Updated 11/18/19 @ 20:47 by Jocelynn Cast NP) Arthritis Back pain Chronic back pain DDD (degenerative disc disease) DVT (deep venous thrombosis) Factor 5 Leiden mutation, heterozygous On Coumadin Hiatal hernia History of TIA (transient ischemic attack) Parkinsons disease Restless leg syndrome Scoliosis RAMAN (stress urinary incontinence, female) Uterine prolapse Surgical History Surgical History (Updated 11/18/19 @ 20:47 by Jocelynn Cast NP) H/O cataract extraction H/O cystoscopy with bladder sling H/O tubal ligation H/O: hysterectomy 11/07/2019 History of corneal transplant left eye Previous back surgery Family History Family History (Up
[2019-11-18 21:27] LABS: Prothrombin Time 22.2 Seconds (11.1-14.7)
[2019-11-18] MEDS: rOPINIRole HCL 1 MG TABLET 5 MG PO (21:56)
[2019-11-18] MEDS: CARBIDOPA/LEVODOPA 25/250 MG TABLET 1 TABLET PO (22:06)
[2019-11-19] MEDS: oxyCODONE/ACETAMINOPHEN 5-325 MG TABLET 1 TABLET PO ×2 (00:54→06:59)
[2019-11-19] MEDS: SODIUM CHLORIDE 0.9% IV 1,000 ML 125 ML IV CONT ×2 (00:55→20:46)
[2019-11-19 05:43] VITALS: BP 102/68; PULSE 51; RESP 18; TEMP 36.3; O2SAT 96
[2019-11-19 06:40] LABS: Basophils Percent Auto 0.5 % (0.2-1.2); Eosinophils Absolute Auto 0.3 K/mm3 (0-0.3); Eosinophils Percent Auto 5.6 % (0-4.4); Hematocrit 33.8 % (37.0-47.0); Hemoglobin 11.1 g/dL (12.0-15.0); Immature Granulocyte Absolute 0.03 K/mm3 (0.00-0.031); Immature Granulocyte Percent A 0.5 % (0-0.5); Lymphocytes Absolute Auto 2.03 K/mm3 (0.9-3.2); Lymphocytes Percent Auto 35.7 % (18.3-44.2); Mean Corpuscular HGB Conc 32.8 g/dl (32-36); Mean Corpuscular Hemoglobin 30.9 pg (26-34); Mean Corpuscular Volume 94.2 fl (80-100); Mean Platelet Volume 9.5 fl (7.4-10.4); Monocytes Absolute Auto 0.3 K/mm3 (0.1-0.6); Monocytes Percent Auto 5.8 % (2.6-8.5); Neutrophils Absolute Auto 2.9 K/mm3 (1.3-6.7); Neutrophils Percent Auto 51.9 % (45.5-73.1); Platelet Count Result 220 k/mm3 (150-375); Red Blood Count 3.59 M/mm3 (4.2-5.4); Red Cell Distribution Width 13.1 % (11.5-14.5); White Blood Count 5.7 K/mm3 (4.5-10.0)
[2019-11-19] MEDS: DOCUSATE SODIUM 100 MG CAPSULE 200 MG PO (07:12)
[2019-11-19 07:45] LABS: Albumin Level 3.1 g/dL (3.5-5.1); Alkaline Phosphatase 48 U/L (38-126); Anion Gap 2 mmol/L (8-16); Aspartate Amino Transferase 14 U/L (14-36); Bilirubin,Total 0.4 mg/dL (0.2-1.3); Blood Urea Nitrogen 10 mg/dL (7-17); Carbon Dioxide 25 mmol/L (22-30); Chloride 109 mmol/L (98-107); Estimated CRCL calculation 62 ml/min; Estimated Glomerular Filt Rate > 60; Glucose 85 mg/dL (65-105); Magnesium 1.9 mg/dL (1.6-2.3); Potassium 4.5 mmol/L (3.4-5.0); Sodium 136 mmol/L (137-145)
[2019-11-19 07:53] LABS: Alanine Aminotransferase < 4 U/L (4-35)
[2019-11-19] MEDS: PRIMIDONE 50 MG TABLET PO ×2 (08:13→18:48)
[2019-11-19] MEDS: CARBIDOPA/LEVODOPA 25/250 MG TABLET 1 TABLET PO ×4 (08:13→20:38)
[2019-11-19] MEDS: rOPINIRole HCL 1 MG TABLET 5 MG PO ×4 (08:14→20:38)
[2019-11-19] MEDS: TIMOLOL MALEATE 0.5% OP SOLN 5 ML BOTTLE 1 DROP LEFT EYE (08:14)
[2019-11-19] MEDS: diphenhydrAMINE HCl CAP 25 MG CAPSULE PO (08:19)
[2019-11-19 10:00] VITALS: BP 117/69; PULSE 60; RESP 15; TEMP 36.5; O2SAT 97
[2019-11-19] MEDS: BISMUTH SUBSALICYLATE 262 MG CHEWABLE TABLET 524 MG PO (12:21)
--- NOTE | 2019-11-19 12:47 | PHAR ---
HOME MED VERIFIED = DEXAMETHASONE SOD PHOS 0.1% OPHTH SOLUTION. SPRIGGER SEALED BOTTLE VERIFIED, NO RX LABEL NO NOTHING ELSE TO CHECK AGAINST.
[2019-11-19 14:00] VITALS: BP 116/68; PULSE 91; RESP 15; TEMP 36.6; O2SAT 100
--- NOTE | 2019-11-19 14:07 | PM.IMPN ---
Progress Note: A&P Assessment and Plan (1) Urinary tract infection: Qualifiers: Hematuria presence: without hematuria Urinary tract infection type: site unspecified Qualified Code(s): N39.0 - Urinary tract infection, site not specified Code(s): N39.0 - Urinary tract infection, site not specified Status: Acute Assessment and Plan: urine culture pending and will check a blood cultures well. Patient was started on Rocephin. 11/19/19 14:07 patient is 69-year-old female presented with complaint of nausea and vomiting is found to have a UTI and being treated with Rocephin, also has a history for she described as a gas which cause her abdominal discomfort patient does use his Mylanta to help will also give her simethicone, clinically stable at the present will follow-up on urine culture and sensitivity and further recommendation to follow (2) Vomiting: Qualifiers: Nausea presence: with nausea Vomiting Intractability: unspecified Vomiting type: unspecified Qualified Code(s): R11.2 - Nausea with vomiting, unspecified Code(s): R11.10 - Vomiting, unspecified Status: Acute Assessment and Plan: Continue with IV fluids overnight patient is tolerating oral intake. Continue with Zofran. (3) Factor 5 Leiden mutation, heterozygous: Code(s): D68.51 - Activated protein C resistance Status: Chronic Assessment and Plan: Patient is chronically on Coumadin and her INR is 2.0. Continue with her Coumadin and check daily PT INR. (4) Restless leg syndrome: Code(s): G25.81 - Restless legs syndrome Status: Chronic Assessment and Plan: Continue with Requip. The patient stated that the SCDs help. (5) Chronic back pain: Code(s): M54.9 - Dorsalgia, unspecified; G89.29 - Other chronic pain Status: Chronic Assessment and Plan: Continue with her Percocet she is able to tolerate them. 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 Subjective Date/time seen: 11/19/19 14:07 patient is 69-year-old female presented with complaint of nausea and vomiting is found to have a UTI and being treated with Rocephin, also has a history for she described as a gas which cause her abdominal discomfort patient does use his Mylanta to help will also give her simethicone, clinically stable at the present will follow-up on urine culture and sensitivity and further recommendation to follow Review of Systems Review of Systems: All systems reviewed & are unremarkable except as noted in HPI and below Exam Const: General: comfortable and no acute distress HENMT: General nose exam: Normal nares present Eyes: Sclera: sclerae normal Neck: Neck: supple Resp: Effort & Inspection: normal respiratory effort Auscultation: clear to auscultation bilaterally Cardio: Rate: regular rate Rhythm: regular rhythm GI: Auscultation: normal bowel sounds Other: diffusely tender Skin: General skin exam: normal color Neuro: Speech: normal speech Sensory Exam: normal sensation Extrem: General: normal to inspection Psych: Affect: normal affect Objective Data Vital Signs Vital Signs: Vital Signs - 24 hr 11/18/19 14:15 11/18/19 14:16 11/18/19 14:17 Temperature Pulse Rate 56 L 51 L 49 L Respiratory Rate 21 H 23 H 16 Blood Pressure 143/73 H Pulse Oximetry 11/18/19 14:30 11/18/19 14:46 11/18/19 14:47 Temperature Pulse Rate 55 L 52 L 59 L Respiratory Rate 14 14 13 Blood Pressure 132/75 Pulse Oximetry 98 98 98 11/18/19 15:00 11/18/19 15:22 11/18/19 15:30 Temperature Pulse Rate 53 L 53 L 55 L Respiratory Rate 13 14 14 Blood Pressure Pulse Oximetry 99 90 94 11/18/19 15:58 11/18/19 22:00 11/19/19 05:43 Temperature 97
--- NOTE | 2019-11-19 16:58 | PC.NURSE ---
Late entry: Was experiencing pain to upper left chest/shoulder area stating that she gets these pains at times and is from gas and usually takes pepto bismal. Called Dr. Montalvo who ok'd and administered to patient with results. patient also repositioned to stomach with bottom in air that helps relieve as well.
[2019-11-19 18:42] LABS: Free T4 Free Thyroxine Reflex 1.14 ng/dL (0.78-2.19)
[2019-11-19] MEDS: SIMETHICONE 125 MG CHEW TAB PO ×2 (18:45→20:38)
[2019-11-19] MEDS: WARFARIN (*PBKC) 1 MG TABLET PO (18:49)
[2019-11-19] MEDS: WARFARIN (*PBKC) 4 MG TABLET 8 MG PO (18:49)
[2019-11-19 22:00] VITALS: BP 105/64; PULSE 56; RESP 22; TEMP 36.1; O2SAT 94
[2019-11-20] MEDS: ONDANSETRON INJ 4 MG/2 ML VIAL IV PUSH ×2 (04:17→09:48)
[2019-11-20] MEDS: oxyCODONE/ACETAMINOPHEN 5-325 MG TABLET 1 TABLET PO ×2 (04:18→21:21)
[2019-11-20 05:56] VITALS: BP 139/59; PULSE 57; RESP 18; TEMP 36.1; O2SAT 97
[2019-11-20 06:09] LABS: Hematocrit 33.9 % (37.0-47.0); Hemoglobin 11.2 g/dL (12.0-15.0); Mean Corpuscular Hemoglobin 30.9 pg (26-34); Mean Corpuscular Volume 93.6 fl (80-100); Mean Platelet Volume 9.7 fl (7.4-10.4); Platelet Count Result 231 k/mm3 (150-375); Red Blood Count 3.62 M/mm3 (4.2-5.4); Red Cell Distribution Width 12.9 % (11.5-14.5); White Blood Count 6.6 K/mm3 (4.5-10.0)
[2019-11-20 06:24] LABS: Anion Gap 3 mmol/L (8-16); Blood Urea Nitrogen 9 mg/dL (7-17); Calcium 8.4 mg/dL (8.4-10.2); Carbon Dioxide 26 mmol/L (22-30); Chloride 105 mmol/L (98-107); Estimated CRCL calculation 73 ml/min; Estimated Glomerular Filt Rate > 60; Glucose 95 mg/dL (65-105); Potassium 3.9 mmol/L (3.4-5.0); Sodium 134 mmol/L (137-145)
[2019-11-20 06:31] LABS: INR 1.4; Prothrombin Time 16.3 Seconds (11.1-14.7)
[2019-11-20] MEDS: diphenhydrAMINE HCl CAP 25 MG CAPSULE PO (09:33)
[2019-11-20] MEDS: SIMETHICONE 125 MG CHEW TAB PO ×4 (09:33→21:11)
[2019-11-20] MEDS: rOPINIRole HCL 1 MG TABLET 5 MG PO ×4 (09:34→21:11)
[2019-11-20] MEDS: PRIMIDONE 50 MG TABLET PO ×2 (09:34→17:05)
[2019-11-20] MEDS: DOCUSATE SODIUM 100 MG CAPSULE 200 MG PO (09:34)
[2019-11-20] MEDS: CARBIDOPA/LEVODOPA 25/250 MG TABLET 1 TABLET PO ×4 (09:34→21:11)
[2019-11-20] MEDS: TIMOLOL MALEATE 0.5% OP SOLN 5 ML BOTTLE 1 DROP LEFT EYE (09:35)
[2019-11-20] MEDS: BISMUTH SUBSALICYLATE 262 MG CHEWABLE TABLET 524 MG PO (13:08)
--- NOTE | 2019-11-20 13:59 | PM.IMPN ---
Progress Note: A&P Assessment and Plan (1) Urinary tract infection: Qualifiers: Hematuria presence: without hematuria Urinary tract infection type: site unspecified Qualified Code(s): N39.0 - Urinary tract infection, site not specified Code(s): N39.0 - Urinary tract infection, site not specified Status: Acute Assessment and Plan: urine culture pending and will check a blood cultures well. Patient was started on Rocephin. 11/20/19 13:59 patient is 69-year-old female presented with complaint of nausea and vomiting is found to have a UTI urine culture is growing E coli sensitive to Rocephin and being treated with Rocephin will continue, also has a history for she what she described as a gas which cause her abdominal discomfort patient does use his Mylanta to help simethicone was added, clinically stable at the present patient clinically stable will have a PT OT evaluate the patient if clinically stable tomorrow may discharge her home. (2) Vomiting: Qualifiers: Nausea presence: with nausea Vomiting Intractability: unspecified Vomiting type: unspecified Qualified Code(s): R11.2 - Nausea with vomiting, unspecified Code(s): R11.10 - Vomiting, unspecified Status: Acute Assessment and Plan: Continue with IV fluids overnight patient is tolerating oral intake. Continue with Zofran. (3) Factor 5 Leiden mutation, heterozygous: Code(s): D68.51 - Activated protein C resistance Status: Chronic Assessment and Plan: Patient is chronically on Coumadin and her INR was on 11/17 2.0. Continue with her Coumadin and check daily PT INR. today patient's INR is 1.4 will continue Coumadin and bridge the patient with Lovenox (4) Restless leg syndrome: Code(s): G25.81 - Restless legs syndrome Status: Chronic Assessment and Plan: Continue with Requip. The patient stated that the SCDs help. (5) Chronic back pain: Code(s): M54.9 - Dorsalgia, unspecified; G89.29 - Other chronic pain Status: Chronic Assessment and Plan: Continue with her Percocet she is able to tolerate them. (6) Parkinsons disease: Code(s): G20 - Parkinson's disease Status: Chronic Assessment and Plan: Continue with levodopa carbidopa Subjective Date/time seen: 11/20/19 13:59 patient is 69-year-old female presented with complaint of nausea and vomiting is found to have a UTI urine culture is growing E coli sensitive to Rocephin and being treated with Rocephin will continue, also has a history for she what she described as a gas which cause her abdominal discomfort patient does use his Mylanta to help simethicone was added, clinically stable at the present patient clinically stable will have a PT OT evaluate the patient if clinically stable tomorrow may discharge her home. Review of Systems Review of Systems: All systems reviewed & are unremarkable except as noted in HPI and below Exam Narrative: Exam Narrative: appears chronically ill older than her age Const: General: no acute distress and uncomfortable HENMT: General nose exam: Normal nares present Eyes: Sclera: sclerae normal Neck: Neck: supple Resp: Effort & Inspection: normal respiratory effort Auscultation: clear to auscultation bilaterally Cardio: Rate: regular rate Rhythm: regular rhythm GI: Auscultation: normal bowel sounds Skin: General skin exam: normal color Neuro: Speech: normal speech Sensory Exam: normal sensation Extrem: General: normal to inspection Psych: Affect: Anxious affect present Objective Data Vital Signs Vital Signs: Vital Signs - 24 hr 11/19/19 14:00 11/19/19 22:00 11/20/19 05:56 Temperature 97.8 F 97 F L 97 F L Pulse Rate 91 56 L 57 L Respiratory Rate 15 22 H 18 Blood Pressure 116/68 105/64 139/59 L Pulse Oximetry 100 94 97 Intake/Output Intake/Output: Intake & Output 11/17/19 11/18/19 11/19/19 11/20/19 2
[2019-11-20 14:00] VITALS: BP 114/63; PULSE 63; RESP 15; TEMP 36.7; O2SAT 96
[2019-11-20] MEDS: ENOXAPARIN 80 MG/0.8 ML SYRINGE 65 MG SUB-Q ×2 (17:04→21:09)
[2019-11-20] MEDS: WARFARIN (*PBKC) 1 MG TABLET PO (17:05)
[2019-11-20] MEDS: WARFARIN (*PBKC) 4 MG TABLET 8 MG PO (17:05)
[2019-11-20 20:00] VITALS: BP 103/67; PULSE 60; RESP 20; TEMP 35.7; O2SAT 97
[2019-11-21 04:00] VITALS: BP 120/50; PULSE 50; RESP 18; TEMP 36.2; O2SAT 94
[2019-11-21 05:49] LABS: Hematocrit 34.2 % (37.0-47.0); Hemoglobin 11.4 g/dL (12.0-15.0); Mean Corpuscular HGB Conc 33.3 g/dl (32-36); Mean Corpuscular Hemoglobin 30.6 pg (26-34); Mean Corpuscular Volume 91.9 fl (80-100); Mean Platelet Volume 9.1 fl (7.4-10.4); Platelet Count Result 233 k/mm3 (150-375); Red Blood Count 3.72 M/mm3 (4.2-5.4); Red Cell Distribution Width 12.7 % (11.5-14.5); White Blood Count 5.8 K/mm3 (4.5-10.0)
[2019-11-21 06:06] LABS: Anion Gap 3 mmol/L (8-16); Blood Urea Nitrogen 10 mg/dL (7-17); Calcium 8.5 mg/dL (8.4-10.2); Carbon Dioxide 29 mmol/L (22-30); Chloride 103 mmol/L (98-107); Estimated CRCL calculation 54 ml/min; Estimated Glomerular Filt Rate > 60; Glucose 91 mg/dL (65-105); Potassium 4.1 mmol/L (3.4-5.0); Sodium 135 mmol/L (137-145)
[2019-11-21] MEDS: TIMOLOL MALEATE 0.5% OP SOLN 5 ML BOTTLE 1 DROP LEFT EYE (09:00)
[2019-11-21] MEDS: ENOXAPARIN 80 MG/0.8 ML SYRINGE 65 MG SUB-Q ×2 (09:00→20:20)
[2019-11-21] MEDS: diphenhydrAMINE HCl CAP 25 MG CAPSULE PO (09:01)
[2019-11-21] MEDS: CARBIDOPA/LEVODOPA 25/250 MG TABLET 1 TABLET PO ×4 (09:01→20:20)
[2019-11-21] MEDS: PRIMIDONE 50 MG TABLET PO ×2 (09:01→17:32)
[2019-11-21] MEDS: SIMETHICONE 125 MG CHEW TAB PO ×4 (09:01→20:20)
[2019-11-21] MEDS: rOPINIRole HCL 1 MG TABLET 5 MG PO ×4 (09:01→20:19)
[2019-11-21] MEDS: DOCUSATE SODIUM 100 MG CAPSULE 200 MG PO (09:01)
[2019-11-21 10:34] LABS: INR 1.5
--- NOTE | 2019-11-21 11:14 | P.DS_ITS ---
DS: Admitting Diagnosis Admitting Diagnosis Admitting Diagnosis: Urinary tract infection/vomiting DS: Summary Time Spent with Patient Time attestation: Total time spent providing and/or coordinating discharge servi matt: DS: Data Data Completed and Pending Labs on day of discharge: Labs from last 24 hours 11/21/19 11/21/19 11/21/19 09:45 05:35 05:35 WBC 5.8 RBC 3.72 L Hgb 11.4 L Hct 34.2 L MCV 91.9 MCH 30.6 MCHC 33.3 RDW 12.7 Plt Count 233 MPV 9.1 PT 18.0 H INR 1.5 Sodium 135 L Potassium 4.1 Chloride 103 Carbon Dioxide 29 Anion Gap 3 L BUN 10 Creatinine 0.70 Estim Creat Clear Calc 54 Estimated GFR > 60 Glucose 91 Calcium 8.5 Preliminary micro results at discharge 11/18/19 21:52 Blood Culture - Preliminary Blood 11/18/19 21:17 Blood Culture - Preliminary Blood Discharge Plan Discharge Attending physician on discharge: Skye Montalvo Discharging Clinician: Skye Montalvo Patient Disposition: Home, Self-Care Activity: as tolerated Diet: heart healthy Discharge Instructions: Patient to follow-up with the primary care doctor as soon as possible Patient Instructions: Antibiotic Form, Warfarin (By mouth), Dehydration (DC), Safe Use of Anticoagulants (DC) Stand Alone Forms: General Discharge Information Follow-up/Referrals: TASHIA,BETH Hernandez M.D. [Primary Care Provider] - Discharge Medications: New bismuth subsalicylate [Pepto-Bismol] 262 mg Tablet,Chewable 524 mg PO Q1H PRN (Reason: Indigestion) Qty: 30 RF: 0 cefdinir 300 mg capsule 300 mg PO Q12H Qty: 14 RF: 0 Continued primidone 50 mg tablet 50 mg PO BID RF: 0 carbidopa-levodopa 25-250 mg tablet 1 tablet PO QID RF: 0 warfarin 4 mg tablet 8 mg PO DAILY RF: 0 Hold Instructions: Resume on 11/10/19. diphenhydramine HCl [Benadryl] 25 mg Capsule 25 mg PO QAM RF: 0 Maxidex 0.1 % drops,suspension 1 drp LEFTEYE EVERY OTHER DAY RF: 0 warfarin 1 mg tablet 1 mg PO DAILY RF: 0 Hold Instructions: Resume on 11/09/19. timolol maleate 0.5 % drops 1 drp LEFTEYE DAILY RF: 0 ropinirole [Requip] 5 mg tablet 5 mg PO QID RF: 0 TheraTears 0.25 % Dropperette 1 drp OPHTHALMIC (EYE) QID RF: 0 oxycodone-acetaminophen [Percocet] 10-325 mg tablet 1 tablet PO Q6H PRN (Reason: pain) Qty: 20 RF: 0 docusate sodium [Colace] 100 mg capsule 200 mg PO QAM RF: 0 Date of admission: 11/18/19 14:17 Primary Care Provider: TASHIA,BETH Hernandez Admitting Provider: Alen Guardado Attending physician on admission: Alen Guardado Condition: Stable Quality VTE Prophylaxis VTE prophylaxis: mechanical ordered
--- NOTE | 2019-11-21 12:42 | PM.IMPN ---
Progress Note: A&P Assessment and Plan (1) Urinary tract infection: Qualifiers: Hematuria presence: without hematuria Urinary tract infection type: site unspecified Qualified Code(s): N39.0 - Urinary tract infection, site not specified Code(s): N39.0 - Urinary tract infection, site not specified Status: Acute Assessment and Plan: urine culture pending and will check a blood cultures well. Patient was started on Rocephin. 11/21/19 12:42 patient is 69-year-old female presented with complaint of nausea and vomiting is found to have a UTI urine culture is growing E coli sensitive to Rocephin and being treated with Rocephin will continue, also has a history for she what she described as a gas which cause her abdominal discomfort patient does use his Mylanta to help simethicone was added, clinically stable at the present patient clinically symptoms are improving a can be discharged home however patient's INR is subtherapeutic will continue to bridge her with a Lovenox and once her INR is therapeutic for 2 days will discharge the patient home on her Coumadin dose (2) Vomiting: Qualifiers: Nausea presence: with nausea Vomiting Intractability: unspecified Vomiting type: unspecified Qualified Code(s): R11.2 - Nausea with vomiting, unspecified Code(s): R11.10 - Vomiting, unspecified Status: Acute Assessment and Plan: Continue with IV fluids overnight patient is tolerating oral intake. Continue with Zofran. (3) Factor 5 Leiden mutation, heterozygous: Code(s): D68.51 - Activated protein C resistance Status: Chronic Assessment and Plan: Patient is chronically on Coumadin and her INR was on 11/17 2.0. Continue with her Coumadin and check daily PT INR. today patient's INR is 1.4 will continue Coumadin and bridge the patient with Lovenox (4) Restless leg syndrome: Code(s): G25.81 - Restless legs syndrome Status: Chronic Assessment and Plan: Continue with Requip. The patient stated that the SCDs help. (5) Chronic back pain: Code(s): M54.9 - Dorsalgia, unspecified; G89.29 - Other chronic pain Status: Chronic Assessment and Plan: Continue with her Percocet she is able to tolerate them. (6) Parkinsons disease: Code(s): G20 - Parkinson's disease Status: Chronic Assessment and Plan: Continue with levodopa carbidopa Subjective Date/time seen: 11/21/19 12:42 patient is 69-year-old female presented with complaint of nausea and vomiting is found to have a UTI urine culture is growing E coli sensitive to Rocephin and being treated with Rocephin will continue, also has a history for she what she described as a gas which cause her abdominal discomfort patient does use his Mylanta to help simethicone was added, clinically stable at the present patient clinically symptoms are improving a can be discharged home however patient's INR is subtherapeutic will continue to bridge her with a Lovenox and once her INR is therapeutic for 2 days will discharge the patient home on her Coumadin dose Review of Systems Review of Systems: All systems reviewed & are unremarkable except as noted in HPI and below Exam Const: General: comfortable and no acute distress HENMT: General nose exam: Normal nares present Mouth: Yes moist mucous membranes Eyes: General: appearance normal, both eyes and all related structures Sclera: sclerae normal Neck: Neck: supple Resp: Effort & Inspection: normal respiratory effort Auscultation: clear to auscultation bilaterally Cardio: Rate: regular rate Rhythm: regular rhythm GI: Auscultation: normal bowel sounds Skin: General skin exam: normal color Neuro: Speech: normal speech Sensory Exam: normal sensation Extrem: General: normal to inspection Psych: Affect: Anxious affect present Objective Data Vital Signs Vital Signs: Vital Signs - 24 hr 11/20/19 14:00
[2019-11-21 14:00] VITALS: BP 97/49; PULSE 67; RESP 19; TEMP 36.9; O2SAT 97
[2019-11-21] MEDS: WARFARIN (*PBKC) 4 MG TABLET 8 MG PO (17:32)
[2019-11-21] MEDS: WARFARIN (*PBKC) 1 MG TABLET PO (17:32)
[2019-11-21 20:00] VITALS: PULSE 67; RESP 19; O2SAT 97
[2019-11-21] MEDS: CEFDINIR 300 MG CAPSULE PO (20:20)
[2019-11-21 22:00] VITALS: BP 108/75; PULSE 54; RESP 20; TEMP 36.1; O2SAT 96
[2019-11-22 05:31] VITALS: BP 116/75; PULSE 53; RESP 20; TEMP 36.2; O2SAT 95
[2019-11-22 05:49] LABS: Hematocrit 36.1 % (37.0-47.0); Hemoglobin 11.9 g/dL (12.0-15.0); Mean Corpuscular Hemoglobin 30.3 pg (26-34); Mean Corpuscular Volume 91.9 fl (80-100); Mean Platelet Volume 9.5 fl (7.4-10.4); Platelet Count Result 261 k/mm3 (150-375); Red Blood Count 3.93 M/mm3 (4.2-5.4); Red Cell Distribution Width 12.6 % (11.5-14.5); White Blood Count 6.7 K/mm3 (4.5-10.0)
[2019-11-22 05:59] LABS: INR 1.5; Prothrombin Time 18.1 Seconds (11.1-14.7)
[2019-11-22 06:07] LABS: Anion Gap 6 mmol/L (8-16); Blood Urea Nitrogen 11 mg/dL (7-17); Calcium 8.8 mg/dL (8.4-10.2); Carbon Dioxide 27 mmol/L (22-30); Chloride 102 mmol/L (98-107); Estimated CRCL calculation 62 ml/min; Estimated Glomerular Filt Rate > 60; Glucose 96 mg/dL (65-105); Potassium 4.2 mmol/L (3.4-5.0); Sodium 135 mmol/L (137-145)
[2019-11-22] MEDS: CEFDINIR 300 MG CAPSULE PO (09:46)
[2019-11-22] MEDS: CARBIDOPA/LEVODOPA 25/250 MG TABLET 1 TABLET PO ×4 (09:46→20:40)
[2019-11-22] MEDS: TIMOLOL MALEATE 0.5% OP SOLN 5 ML BOTTLE 1 DROP LEFT EYE (09:46)
[2019-11-22] MEDS: DOCUSATE SODIUM 100 MG CAPSULE 200 MG PO (09:47)
[2019-11-22] MEDS: diphenhydrAMINE HCl CAP 25 MG CAPSULE PO (09:47)
[2019-11-22] MEDS: ENOXAPARIN 80 MG/0.8 ML SYRINGE 65 MG SUB-Q ×2 (09:47→20:40)
[2019-11-22] MEDS: PRIMIDONE 50 MG TABLET PO ×2 (09:47→17:54)
[2019-11-22] MEDS: rOPINIRole HCL 1 MG TABLET 5 MG PO ×4 (09:49→20:40)
[2019-11-22] MEDS: SIMETHICONE 125 MG CHEW TAB PO ×4 (09:49→20:40)
--- NOTE | 2019-11-22 12:42 | PM.IMPN ---
Progress Note: A&P Assessment and Plan (1) Urinary tract infection: Qualifiers: Hematuria presence: without hematuria Urinary tract infection type: site unspecified Qualified Code(s): N39.0 - Urinary tract infection, site not specified Code(s): N39.0 - Urinary tract infection, site not specified Status: Acute Assessment and Plan: urine culture pending and will check a blood cultures well. Patient was started on Rocephin. 11/22/19 12:42 patient is 69-year-old female presented with complaint of nausea and vomiting is found to have a UTI urine culture is growing E coli sensitive to Rocephin and being treated with Rocephin will continue, also has a history for she what she described as a gas which cause her abdominal discomfort patient does use his Mylanta to help simethicone was added, clinically stable at the present today on 11/21 patient clinically symptoms are improving a can be discharged home however patient's INR is subtherapeutic 1.5 will continue to bridge her with a Lovenox and once her INR is therapeutic for 2 days will discharge the patient home on her Coumadin dose, will continue IV Rocephin for UTI, patient nausea or vomiting have also improved and able to tolerate her diet (2) Vomiting: Qualifiers: Nausea presence: with nausea Vomiting Intractability: unspecified Vomiting type: unspecified Qualified Code(s): R11.2 - Nausea with vomiting, unspecified Code(s): R11.10 - Vomiting, unspecified Status: Acute Assessment and Plan: Continue with IV fluids overnight patient is tolerating oral intake. Continue with Zofran. (3) Factor 5 Leiden mutation, heterozygous: Code(s): D68.51 - Activated protein C resistance Status: Chronic Assessment and Plan: Patient is chronically on Coumadin and her INR was on 11/17 2.0. Continue with her Coumadin and check daily PT INR. today patient's INR is 1.4 will continue Coumadin and bridge the patient with Lovenox (4) Restless leg syndrome: Code(s): G25.81 - Restless legs syndrome Status: Chronic Assessment and Plan: Continue with Requip. The patient stated that the SCDs help. (5) Chronic back pain: Code(s): M54.9 - Dorsalgia, unspecified; G89.29 - Other chronic pain Status: Chronic Assessment and Plan: Continue with her Percocet she is able to tolerate them. (6) Parkinsons disease: Code(s): G20 - Parkinson's disease Status: Chronic Assessment and Plan: Continue with levodopa carbidopa Subjective Date/time seen: 11/22/19 12:42 patient is 69-year-old female presented with complaint of nausea and vomiting is found to have a UTI urine culture is growing E coli sensitive to Rocephin and being treated with Rocephin will continue, also has a history for she what she described as a gas which cause her abdominal discomfort patient does use his Mylanta to help simethicone was added, clinically stable at the present today on 11/21 patient clinically symptoms are improving a can be discharged home however patient's INR is subtherapeutic 1.5 will continue to bridge her with a Lovenox and once her INR is therapeutic for 2 days will discharge the patient home on her Coumadin dose, will continue IV Rocephin for UTI, patient nausea or vomiting have also improved and able to tolerate her diet Review of Systems Review of Systems: All systems reviewed & are unremarkable except as noted in HPI and below Exam Const: General: comfortable and no acute distress HENMT: General nose exam: Normal nares present Eyes: General: appearance normal, both eyes and all related structures Sclera: sclerae normal Neck: Neck: supple Resp: Auscultation: clear to auscultation bilaterally Objective Data Vital Signs Vital Signs: Vital Signs - 24 hr 11/21/19 14:00 11/21/19 20:00 11/21/19 22:00 Temperature 98.4 F 96.9 F L Pulse Rate 67 67 54 L Respirator
[2019-11-22 14:00] VITALS: BP 120/78; PULSE 57; RESP 20; TEMP 36.9; O2SAT 96
[2019-11-22] MEDS: WARFARIN (*PBKC) 4 MG TABLET 8 MG PO (17:53)
[2019-11-22] MEDS: WARFARIN (*PBKC) 1 MG TABLET PO (17:54)
[2019-11-22 20:00] VITALS: PULSE 57; RESP 20; O2SAT 96
[2019-11-22] MEDS: oxyCODONE/ACETAMINOPHEN 5-325 MG TABLET 1 TABLET PO (21:34)
[2019-11-22 22:00] VITALS: BP 99/71; PULSE 54; RESP 18; TEMP 36.1; O2SAT 95
[2019-11-23 05:33] LABS: Hematocrit 36.9 % (37.0-47.0); Hemoglobin 11.9 g/dL (12.0-15.0); Mean Corpuscular HGB Conc 32.2 g/dl (32-36); Mean Corpuscular Hemoglobin 30.4 pg (26-34); Mean Corpuscular Volume 94.1 fl (80-100); Mean Platelet Volume 9.4 fl (7.4-10.4); Platelet Count Result 261 k/mm3 (150-375); Red Blood Count 3.92 M/mm3 (4.2-5.4); Red Cell Distribution Width 13.2 % (11.5-14.5); White Blood Count 5.8 K/mm3 (4.5-10.0)
[2019-11-23 05:41] LABS: INR 1.6; Prothrombin Time 18.5 Seconds (11.1-14.7)
[2019-11-23 05:44] VITALS: BP 100/60; PULSE 51; RESP 18; TEMP 36.4; O2SAT 95
[2019-11-23 05:54] LABS: Anion Gap 4 mmol/L (8-16); Blood Urea Nitrogen 14 mg/dL (7-17); Calcium 8.8 mg/dL (8.4-10.2); Carbon Dioxide 28 mmol/L (22-30); Chloride 101 mmol/L (98-107); Estimated CRCL calculation 62 ml/min; Estimated Glomerular Filt Rate > 60; Glucose 86 mg/dL (65-105); Potassium 4.2 mmol/L (3.4-5.0); Sodium 133 mmol/L (137-145)
[2019-11-23] MEDS: DOCUSATE SODIUM 100 MG CAPSULE 200 MG PO (09:30)
[2019-11-23] MEDS: TIMOLOL MALEATE 0.5% OP SOLN 5 ML BOTTLE 1 DROP LEFT EYE (09:30)
[2019-11-23] MEDS: diphenhydrAMINE HCl CAP 25 MG CAPSULE PO (09:30)
[2019-11-23] MEDS: ENOXAPARIN 80 MG/0.8 ML SYRINGE 65 MG SUB-Q ×2 (09:31→20:07)
[2019-11-23] MEDS: SIMETHICONE 125 MG CHEW TAB PO ×4 (09:31→20:07)
[2019-11-23] MEDS: CARBIDOPA/LEVODOPA 25/250 MG TABLET 1 TABLET PO ×4 (09:31→20:07)
[2019-11-23] MEDS: rOPINIRole HCL 1 MG TABLET 5 MG PO ×4 (09:31→20:07)
[2019-11-23] MEDS: PRIMIDONE 50 MG TABLET PO ×2 (09:32→17:15)
--- NOTE | 2019-11-23 13:06 | PM.IMPN ---
Progress Note: A&P Assessment and Plan (1) Urinary tract infection: Qualifiers: Hematuria presence: without hematuria Urinary tract infection type: site unspecified Qualified Code(s): N39.0 - Urinary tract infection, site not specified Code(s): N39.0 - Urinary tract infection, site not specified Status: Acute Assessment and Plan: urine culture pending and will check a blood cultures well. Patient was started on Rocephin. 11/23/19 13:06 patient is 69-year-old female presented with complaint of nausea and vomiting is found to have a UTI urine culture is growing E coli sensitive to Rocephin and being treated with Rocephin will continue, also has a history for she what she described as a gas which cause her abdominal discomfort patient does use his Mylanta to help simethicone was added, clinically stable at the present today on 11/22 patient clinically symptoms are improving a can be discharged home however patient's INR is subtherapeutic 1.6 will continue to bridge her with a Lovenox and once her INR is therapeutic for 2 days will discharge the patient home on her Coumadin dose, will continue IV Rocephin for UTI, patient nausea or vomiting have also improved and able to tolerate her diet (2) Vomiting: Qualifiers: Nausea presence: with nausea Vomiting Intractability: unspecified Vomiting type: unspecified Qualified Code(s): R11.2 - Nausea with vomiting, unspecified Code(s): R11.10 - Vomiting, unspecified Status: Acute Assessment and Plan: Continue with IV fluids overnight patient is tolerating oral intake. Continue with Zofran. (3) Factor 5 Leiden mutation, heterozygous: Code(s): D68.51 - Activated protein C resistance Status: Chronic Assessment and Plan: Patient is chronically on Coumadin and her INR was on 11/17 2.0. Continue with her Coumadin and check daily PT INR. today patient's INR is 1.4 will continue Coumadin and bridge the patient with Lovenox (4) Restless leg syndrome: Code(s): G25.81 - Restless legs syndrome Status: Chronic Assessment and Plan: Continue with Requip. The patient stated that the SCDs help. (5) Chronic back pain: Code(s): M54.9 - Dorsalgia, unspecified; G89.29 - Other chronic pain Status: Chronic Assessment and Plan: Continue with her Percocet she is able to tolerate them. 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 Subjective Date/time seen: 11/23/19 13:06 patient is 69-year-old female presented with complaint of nausea and vomiting is found to have a UTI urine culture is growing E coli sensitive to Rocephin and being treated with Rocephin will continue, also has a history for she what she described as a gas which cause her abdominal discomfort patient does use his Mylanta to help simethicone was added, clinically stable at the present today on 11/22 patient clinically symptoms are improving a can be discharged home however patient's INR is subtherapeutic 1.6 will continue to bridge her with a Lovenox and once her INR is therapeutic for 2 days will discharge the patient home on her Coumadin dose, will continue IV Rocephin for UTI, patient nausea or vomiting have also improved and able to tolerate her diet Review of Systems Review of Systems: All systems reviewed & are unremarkable except as noted in HPI and below Exam Const: General: comfortable and no acute distress HENMT: General nose exam: Normal nares present Eyes: General: appearance normal, both eyes and all related structures Sclera: sclerae normal Neck: Neck: supple Resp: Effort & Inspection: normal respiratory effort Auscultation: clear to auscultation bilaterally Cardio: Rate: regular rate Rhythm: regul
[2019-11-23 14:00] VITALS: BP 80/52; PULSE 59; RESP 17; TEMP 36.9; O2SAT 94
--- NOTE | 2019-11-23 14:08 | PC.NURSE ---
DR CALLE NOTIFIED OF BP 80/52, PT ASYMPTOMATIC. NEW ORDERS RECIEVED
[2019-11-23] MEDS: SODIUM CHLORIDE 0.9% IV 1,000 ML 125 ML IV CONT ×2 (14:17→23:43)
[2019-11-23] MEDS: WARFARIN (*PBKC) 4 MG TABLET 8 MG PO (17:14)
[2019-11-23] MEDS: WARFARIN (*PBKC) 1 MG TABLET PO (17:15)
[2019-11-23 18:59] VITALS: BP 109/69
[2019-11-23 22:00] VITALS: BP 86/50; PULSE 62; RESP 20; TEMP 36.1; O2SAT 96
[2019-11-24 05:43] LABS: Hematocrit 35.3 % (37.0-47.0); Hemoglobin 11.7 g/dL (12.0-15.0); Mean Corpuscular HGB Conc 33.1 g/dl (32-36); Mean Corpuscular Hemoglobin 30.8 pg (26-34); Mean Corpuscular Volume 92.9 fl (80-100); Mean Platelet Volume 9.5 fl (7.4-10.4); Platelet Count Result 235 k/mm3 (150-375); Red Cell Distribution Width 13.1 % (11.5-14.5); White Blood Count 5.7 K/mm3 (4.5-10.0)
[2019-11-24 05:49] LABS: INR 1.7; Prothrombin Time 19.8 Seconds (11.1-14.7)
[2019-11-24 05:52] VITALS: BP 125/60; PULSE 51; RESP 18; TEMP 36.1; O2SAT 95
[2019-11-24 05:54] LABS: Anion Gap 3 mmol/L (8-16); Blood Urea Nitrogen 14 mg/dL (7-17); Calcium 8.5 mg/dL (8.4-10.2); Carbon Dioxide 26 mmol/L (22-30); Chloride 106 mmol/L (98-107); Estimated CRCL calculation 62 ml/min; Estimated Glomerular Filt Rate > 60; Glucose 89 mg/dL (65-105); Potassium 4.2 mmol/L (3.4-5.0); Sodium 135 mmol/L (137-145)
[2019-11-24] MEDS: SODIUM CHLORIDE 0.9% IV 1,000 ML 125 ML IV CONT ×3 (06:42→21:39)
[2019-11-24] MEDS: TIMOLOL MALEATE 0.5% OP SOLN 5 ML BOTTLE 1 DROP LEFT EYE (09:23)
[2019-11-24] MEDS: rOPINIRole HCL 1 MG TABLET 5 MG PO ×4 (09:23→20:31)
[2019-11-24] MEDS: CARBIDOPA/LEVODOPA 25/250 MG TABLET 1 TABLET PO ×4 (09:23→20:31)
[2019-11-24] MEDS: diphenhydrAMINE HCl CAP 25 MG CAPSULE PO (09:23)
[2019-11-24] MEDS: DOCUSATE SODIUM 100 MG CAPSULE 200 MG PO (09:24)
[2019-11-24] MEDS: ENOXAPARIN 80 MG/0.8 ML SYRINGE 65 MG SUB-Q ×2 (09:24→20:30)
[2019-11-24] MEDS: SIMETHICONE 125 MG CHEW TAB PO ×4 (09:24→20:30)
[2019-11-24] MEDS: PRIMIDONE 50 MG TABLET PO ×2 (10:33→18:28)
--- NOTE | 2019-11-24 11:59 | PM.IMPN ---
Progress Note: A&P Assessment and Plan (1) Urinary tract infection: Qualifiers: Hematuria presence: without hematuria Urinary tract infection type: site unspecified Qualified Code(s): N39.0 - Urinary tract infection, site not specified Code(s): N39.0 - Urinary tract infection, site not specified Status: Acute Assessment and Plan: urine culture pending and will check a blood cultures well. Patient was started on Rocephin. 11/24/19 11:59 patient is 69-year-old female presented with complaint of nausea and vomiting is found to have a UTI urine culture is growing E coli sensitive to Rocephin and being treated with Rocephin will continue, also has a history for she what she described as a gas which cause her abdominal discomfort patient does use his Mylanta to help simethicone was added, clinically stable at the present today on 11/23 patient clinically symptoms are improving a can be discharged home however patient's INR is subtherapeutic 1.7 will continue to bridge her with a Lovenox and once her INR is therapeutic for 2 days will discharge the patient home on her Coumadin dose, will continue IV Rocephin for UTI, patient nausea or vomiting have also improved and able to tolerate her diet (2) Vomiting: Qualifiers: Nausea presence: with nausea Vomiting Intractability: unspecified Vomiting type: unspecified Qualified Code(s): R11.2 - Nausea with vomiting, unspecified Code(s): R11.10 - Vomiting, unspecified Status: Acute Assessment and Plan: Continue with IV fluids overnight patient is tolerating oral intake. Continue with Zofran. (3) Factor 5 Leiden mutation, heterozygous: Code(s): D68.51 - Activated protein C resistance Status: Chronic Assessment and Plan: Patient is chronically on Coumadin and her INR was on 11/17 2.0. Continue with her Coumadin and check daily PT INR. today patient's INR is 1.4 will continue Coumadin and bridge the patient with Lovenox (4) Restless leg syndrome: Code(s): G25.81 - Restless legs syndrome Status: Chronic Assessment and Plan: Continue with Requip. The patient stated that the SCDs help. (5) Chronic back pain: Code(s): M54.9 - Dorsalgia, unspecified; G89.29 - Other chronic pain Status: Chronic Assessment and Plan: Continue with her Percocet she is able to tolerate them. (6) Parkinsons disease: Code(s): G20 - Parkinson's disease Status: Chronic Assessment and Plan: Continue with levodopa carbidopa Subjective Date/time seen: 11/24/19 11:59 patient is 69-year-old female presented with complaint of nausea and vomiting is found to have a UTI urine culture is growing E coli sensitive to Rocephin and being treated with Rocephin will continue, also has a history for she what she described as a gas which cause her abdominal discomfort patient does use his Mylanta to help simethicone was added, clinically stable at the present today on 11/23 patient clinically symptoms are improving a can be discharged home however patient's INR is subtherapeutic 1.7 will continue to bridge her with a Lovenox and once her INR is therapeutic for 2 days will discharge the patient home on her Coumadin dose, will continue IV Rocephin for UTI, patient nausea or vomiting have also improved and able to tolerate her diet Review of Systems Review of Systems: All systems reviewed & are unremarkable except as noted in HPI and below Exam Const: General: comfortable and no acute distress HENMT: General nose exam: Normal nares present Eyes: General: appearance normal, both eyes and all related structures Sclera: sclerae normal Neck: Neck: supple Resp: Effort & Inspection: normal respiratory effort Auscultation: clear to auscultation bilaterally Cardio: Rate: regular rate Rhythm: regular rhythm GI: Auscultation: normal bowel sounds Skin: General skin exam: normal colo
[2019-11-24 14:00] VITALS: BP 93/56; PULSE 70; RESP 14; TEMP 36.4; O2SAT 96
[2019-11-24] MEDS: ONDANSETRON INJ 4 MG/2 ML VIAL IV PUSH (17:35)
[2019-11-24] MEDS: WARFARIN (*PBKC) 4 MG TABLET 8 MG PO (18:29)
[2019-11-24] MEDS: WARFARIN (*PBKC) 1 MG TABLET PO (18:29)
[2019-11-24 20:00] VITALS: PULSE 70; RESP 14; O2SAT 96
[2019-11-24 22:00] VITALS: BP 109/57; PULSE 57; RESP 12; TEMP 36.8; O2SAT 96
[2019-11-25 04:34] VITALS: BP 138/71; PULSE 47; RESP 16; TEMP 37; O2SAT 98
[2019-11-25 05:35] LABS: Hematocrit 34.8 % (37.0-47.0); Hemoglobin 11.4 g/dL (12.0-15.0); Mean Corpuscular HGB Conc 32.8 g/dl (32-36); Mean Corpuscular Hemoglobin 31.3 pg (26-34); Mean Corpuscular Volume 95.6 fl (80-100); Mean Platelet Volume 10.2 fl (7.4-10.4); Platelet Count Result 213 k/mm3 (150-375); Red Blood Count 3.64 M/mm3 (4.2-5.4); White Blood Count 5.4 K/mm3 (4.5-10.0)
[2019-11-25] MEDS: SODIUM CHLORIDE 0.9% IV 1,000 ML 125 ML IV CONT ×3 (05:43→22:25)
[2019-11-25 05:50] LABS: INR 1.7; Prothrombin Time 19.1 Seconds (11.1-14.7)
[2019-11-25 05:53] LABS: Anion Gap 2 mmol/L (8-16); Blood Urea Nitrogen 13 mg/dL (7-17); Calcium 8.6 mg/dL (8.4-10.2); Carbon Dioxide 25 mmol/L (22-30); Chloride 107 mmol/L (98-107); Estimated CRCL calculation 62 ml/min; Estimated Glomerular Filt Rate > 60; Glucose 88 mg/dL (65-105); Potassium 4.3 mmol/L (3.4-5.0); Sodium 134 mmol/L (137-145)
[2019-11-25] MEDS: ENOXAPARIN 80 MG/0.8 ML SYRINGE 65 MG SUB-Q ×2 (08:38→20:27)
[2019-11-25] MEDS: DOCUSATE SODIUM 100 MG CAPSULE 200 MG PO (08:39)
[2019-11-25] MEDS: rOPINIRole HCL 1 MG TABLET 5 MG PO ×4 (08:39→20:26)
[2019-11-25] MEDS: CARBIDOPA/LEVODOPA 25/250 MG TABLET 1 TABLET PO ×4 (08:39→20:26)
[2019-11-25] MEDS: PRIMIDONE 50 MG TABLET PO ×2 (08:39→17:15)
[2019-11-25] MEDS: TIMOLOL MALEATE 0.5% OP SOLN 5 ML BOTTLE 1 DROP LEFT EYE (08:40)
[2019-11-25] MEDS: SIMETHICONE 125 MG CHEW TAB PO ×4 (08:40→20:26)
[2019-11-25] MEDS: diphenhydrAMINE HCl CAP 25 MG CAPSULE PO (09:23)
--- NOTE | 2019-11-25 12:39 | PM.IMPN ---
Progress Note: A&P Assessment and Plan (1) Urinary tract infection: Qualifiers: Hematuria presence: without hematuria Urinary tract infection type: site unspecified Qualified Code(s): N39.0 - Urinary tract infection, site not specified Code(s): N39.0 - Urinary tract infection, site not specified Status: Acute Assessment and Plan: urine culture pending and will check a blood cultures well. Patient was started on Rocephin. 11/25/19 12:39 patient is 69-year-old female presented with complaint of nausea and vomiting is found to have a UTI urine culture is growing E coli sensitive to Rocephin and being treated with Rocephin will continue, also has a history for she what she described as a gas which cause her abdominal discomfort patient does use his Mylanta to help simethicone was added, clinically stable at the present today on 11/24 patient clinically symptoms are improving a can be discharged home however patient's INR is subtherapeutic again 1.7 today, will continue to bridge her with a Lovenox and once her INR is therapeutic for 2 days will discharge the patient home on her Coumadin dose, will continue IV Rocephin for UTI, patient nausea or vomiting have also improved and able to tolerate her diet (2) Vomiting: Qualifiers: Nausea presence: with nausea Vomiting Intractability: unspecified Vomiting type: unspecified Qualified Code(s): R11.2 - Nausea with vomiting, unspecified Code(s): R11.10 - Vomiting, unspecified Status: Acute Assessment and Plan: Continue with IV fluids overnight patient is tolerating oral intake. Continue with Zofran. (3) Factor 5 Leiden mutation, heterozygous: Code(s): D68.51 - Activated protein C resistance Status: Chronic Assessment and Plan: Patient is chronically on Coumadin and her INR was on 11/17 2.0. Continue with her Coumadin and check daily PT INR. today patient's INR is 1.4 will continue Coumadin and bridge the patient with Lovenox (4) Restless leg syndrome: Code(s): G25.81 - Restless legs syndrome Status: Chronic Assessment and Plan: Continue with Requip. The patient stated that the SCDs help. (5) Chronic back pain: Code(s): M54.9 - Dorsalgia, unspecified; G89.29 - Other chronic pain Status: Chronic Assessment and Plan: Continue with her Percocet she is able to tolerate them. (6) Parkinsons disease: Code(s): G20 - Parkinson's disease Status: Chronic Assessment and Plan: Continue with levodopa carbidopa Subjective Date/time seen: 11/25/19 12:39 patient is 69-year-old female presented with complaint of nausea and vomiting is found to have a UTI urine culture is growing E coli sensitive to Rocephin and being treated with Rocephin will continue, also has a history for she what she described as a gas which cause her abdominal discomfort patient does use his Mylanta to help simethicone was added, clinically stable at the present today on 11/24 patient clinically symptoms are improving a can be discharged home however patient's INR is subtherapeutic again 1.7 today, will continue to bridge her with a Lovenox and once her INR is therapeutic for 2 days will discharge the patient home on her Coumadin dose, will continue IV Rocephin for UTI, patient nausea or vomiting have also improved and able to tolerate her diet Review of Systems Review of Systems: All systems reviewed & are unremarkable except as noted in HPI and below Exam Const: General: comfortable and no acute distress HENMT: General nose exam: Normal nares present Eyes: General: appearance normal, both eyes and all related structures Sclera: sclerae normal Neck: Neck: supple Resp: Effort & Inspection: normal respiratory effort Auscultation: clear to auscultation bilaterally Cardio: Rate: regular rate Rhythm: regular rhythm GI: Auscultation: normal bowel sounds Skin: Ge
[2019-11-25] MEDS: polyethylene glycoL 3350 17 GM POWD.PACK PO (12:56)
[2019-11-25 14:00] VITALS: BP 105/66; PULSE 52; RESP 16; TEMP 36.8; O2SAT 96
[2019-11-25] MEDS: WARFARIN (*PBKC) 1 MG TABLET PO (17:14)
[2019-11-25] MEDS: WARFARIN (*PBKC) 4 MG TABLET 8 MG PO (17:14)
[2019-11-25 20:33] VITALS: BP 125/65; PULSE 58; RESP 18; TEMP 37.1; O2SAT 97
[2019-11-26 05:04] VITALS: BP 129/56; PULSE 57; RESP 16; TEMP 37.2; O2SAT 97
[2019-11-26 06:03] LABS: Anion Gap 3 mmol/L (8-16); Blood Urea Nitrogen 12 mg/dL (7-17); Calcium 8.6 mg/dL (8.4-10.2); Carbon Dioxide 26 mmol/L (22-30); Chloride 107 mmol/L (98-107); Estimated CRCL calculation 62 ml/min; Estimated Glomerular Filt Rate > 60; Glucose 83 mg/dL (65-105); INR 1.9; Potassium 4.3 mmol/L (3.4-5.0); Prothrombin Time 21.1 Seconds (11.1-14.7); Sodium 136 mmol/L (137-145)
[2019-11-26 06:09] LABS: Hematocrit 33.3 % (37.0-47.0); Mean Corpuscular Hemoglobin 30.7 pg (26-34); Mean Platelet Volume 10.1 fl (7.4-10.4); Platelet Count Result 216 k/mm3 (150-375); Red Blood Count 3.58 M/mm3 (4.2-5.4); Red Cell Distribution Width 12.8 % (11.5-14.5); White Blood Count 5.8 K/mm3 (4.5-10.0)
[2019-11-26] MEDS: SODIUM CHLORIDE 0.9% IV 1,000 ML 125 ML IV CONT ×2 (06:22→18:59)
[2019-11-26] MEDS: TIMOLOL MALEATE 0.5% OP SOLN 5 ML BOTTLE 1 DROP LEFT EYE (09:08)
[2019-11-26] MEDS: PRIMIDONE 50 MG TABLET PO ×2 (09:09→16:28)
[2019-11-26] MEDS: rOPINIRole HCL 1 MG TABLET 5 MG PO ×4 (09:09→20:24)
[2019-11-26] MEDS: SIMETHICONE 125 MG CHEW TAB PO ×4 (09:09→20:24)
[2019-11-26] MEDS: DOCUSATE SODIUM 100 MG CAPSULE 200 MG PO (09:09)
[2019-11-26] MEDS: diphenhydrAMINE HCl CAP 25 MG CAPSULE PO (09:09)
[2019-11-26] MEDS: CARBIDOPA/LEVODOPA 25/250 MG TABLET 1 TABLET PO ×4 (09:09→20:24)
[2019-11-26] MEDS: ENOXAPARIN 80 MG/0.8 ML SYRINGE 65 MG SUB-Q ×2 (09:09→20:25)
[2019-11-26] MEDS: polyethylene glycoL 3350 17 GM POWD.PACK PO (09:19)
[2019-11-26 13:31] VITALS: BP 123/76; PULSE 52; RESP 15; TEMP 36.9; O2SAT 97
--- NOTE | 2019-11-26 14:13 | PM.IMPN ---
Progress Note: A&P Assessment and Plan (1) Urinary tract infection: Qualifiers: Hematuria presence: without hematuria Urinary tract infection type: site unspecified Qualified Code(s): N39.0 - Urinary tract infection, site not specified Code(s): N39.0 - Urinary tract infection, site not specified Status: Acute Assessment and Plan: urine culture pending and will check a blood cultures well. Patient was started on Rocephin. 11/26/19 14:13 patient is 69-year-old female presented with complaint of nausea and vomiting is found to have a UTI urine culture is growing E coli sensitive to Rocephin and being treated with Rocephin will continue, also has a history for she what she described as a gas which cause her abdominal discomfort patient does use his Mylanta to help simethicone was added, clinically stable at the present today on 11/25 patient clinically symptoms are improving a can be discharged home however patient's INR is subtherapeutic again 1.9 today, will continue to bridge her with a Lovenox and once her INR is therapeutic for 2 days will discharge the patient home on her Coumadin dose, will continue IV Rocephin for UTI for total of 7days, patient denies nausea or vomiting, have also improved and able to tolerate her diet (2) Vomiting: Qualifiers: Nausea presence: with nausea Vomiting Intractability: unspecified Vomiting type: unspecified Qualified Code(s): R11.2 - Nausea with vomiting, unspecified Code(s): R11.10 - Vomiting, unspecified Status: Acute Assessment and Plan: Continue with IV fluids overnight patient is tolerating oral intake. Continue with Zofran. (3) Factor 5 Leiden mutation, heterozygous: Code(s): D68.51 - Activated protein C resistance Status: Chronic Assessment and Plan: Patient is chronically on Coumadin and her INR was on 11/17 2.0. Continue with her Coumadin and check daily PT INR. today patient's INR is 1.4 will continue Coumadin and bridge the patient with Lovenox (4) Restless leg syndrome: Code(s): G25.81 - Restless legs syndrome Status: Chronic Assessment and Plan: Continue with Requip. The patient stated that the SCDs help. (5) Chronic back pain: Code(s): M54.9 - Dorsalgia, unspecified; G89.29 - Other chronic pain Status: Chronic Assessment and Plan: Continue with her Percocet she is able to tolerate them. (6) Parkinsons disease: Code(s): G20 - Parkinson's disease Status: Chronic Assessment and Plan: Continue with levodopa carbidopa Subjective Date/time seen: 11/26/19 14:13 patient is 69-year-old female presented with complaint of nausea and vomiting is found to have a UTI urine culture is growing E coli sensitive to Rocephin and being treated with Rocephin will continue, also has a history for she what she described as a gas which cause her abdominal discomfort patient does use his Mylanta to help simethicone was added, clinically stable at the present today on 11/25 patient clinically symptoms are improving a can be discharged home however patient's INR is subtherapeutic again 1.9 today, will continue to bridge her with a Lovenox and once her INR is therapeutic for 2 days will discharge the patient home on her Coumadin dose, will continue IV Rocephin for UTI for total of 7days, patient denies nausea or vomiting, have also improved and able to tolerate her diet Review of Systems Review of Systems: All systems reviewed & are unremarkable except as noted in HPI and below Exam Const: General: no acute distress HENMT: General nose exam: Normal nares present Eyes: Sclera: sclerae normal Neck: Neck: supple Resp: Effort & Inspection: normal respiratory effort Auscultation: clear to auscultation bilaterally Cardio: Rate: regular rate Rhythm: regular rhythm GI: Auscultation: normal bowel sounds Skin: General skin exam: normal colo
[2019-11-26] MEDS: WARFARIN (*PBKC) 1 MG TABLET PO (16:27)
[2019-11-26] MEDS: WARFARIN (*PBKC) 4 MG TABLET 8 MG PO (16:27)
[2019-11-26 21:21] VITALS: BP 110/69; PULSE 54; RESP 16; TEMP 36.9; O2SAT 97
[2019-11-27] MEDS: SODIUM CHLORIDE 0.9% IV 1,000 ML 125 ML IV CONT (03:02)
[2019-11-27 05:20] LABS: Hematocrit 34.6 % (37.0-47.0); Hemoglobin 11.4 g/dL (12.0-15.0); Mean Corpuscular HGB Conc 32.9 g/dl (32-36); Mean Corpuscular Hemoglobin 31.4 pg (26-34); Mean Corpuscular Volume 95.3 fl (80-100); Platelet Count Result 210 k/mm3 (150-375); Red Blood Count 3.63 M/mm3 (4.2-5.4); Red Cell Distribution Width 13.2 % (11.5-14.5)
[2019-11-27 05:35] LABS: INR 1.9; Prothrombin Time 21.1 Seconds (11.1-14.7)
[2019-11-27 05:39] LABS: Anion Gap 2 mmol/L (8-16); Blood Urea Nitrogen 12 mg/dL (7-17); Calcium 8.7 mg/dL (8.4-10.2); Carbon Dioxide 26 mmol/L (22-30); Chloride 107 mmol/L (98-107); Estimated CRCL calculation 62 ml/min; Estimated Glomerular Filt Rate > 60; Glucose 91 mg/dL (65-105); Potassium 4.4 mmol/L (3.4-5.0); Sodium 135 mmol/L (137-145)
[2019-11-27 05:43] VITALS: BP 128/71; PULSE 49; RESP 16; TEMP 36.7; O2SAT 92
[2019-11-27] MEDS: SIMETHICONE 125 MG CHEW TAB PO ×4 (08:57→20:19)
[2019-11-27] MEDS: DOCUSATE SODIUM 100 MG CAPSULE 200 MG PO (08:58)
[2019-11-27] MEDS: CARBIDOPA/LEVODOPA 25/250 MG TABLET 1 TABLET PO ×4 (08:58→20:19)
[2019-11-27] MEDS: diphenhydrAMINE HCl CAP 25 MG CAPSULE PO (08:58)
[2019-11-27] MEDS: ENOXAPARIN 80 MG/0.8 ML SYRINGE 65 MG SUB-Q ×2 (08:58→20:19)
[2019-11-27] MEDS: polyethylene glycoL 3350 17 GM POWD.PACK PO (08:58)
[2019-11-27] MEDS: PRIMIDONE 50 MG TABLET PO ×2 (08:58→17:08)
[2019-11-27] MEDS: rOPINIRole HCL 1 MG TABLET 5 MG PO ×4 (08:58→20:19)
[2019-11-27] MEDS: TIMOLOL MALEATE 0.5% OP SOLN 5 ML BOTTLE 1 DROP LEFT EYE (09:03)
--- NOTE | 2019-11-27 12:15 | PM.IMPN ---
Progress Note: A&P Assessment and Plan (1) Urinary tract infection: Qualifiers: Hematuria presence: without hematuria Urinary tract infection type: site unspecified Qualified Code(s): N39.0 - Urinary tract infection, site not specified Code(s): N39.0 - Urinary tract infection, site not specified Status: Acute Assessment and Plan: urine culture pending and will check a blood cultures well. Patient was started on Rocephin. 11/27/19 12:15 patient is 69-year-old female presented with complaint of nausea and vomiting is found to have a UTI urine culture is growing E coli sensitive to Rocephin and being treated with Rocephin will continue, also has a history for she what she described as a gas which cause her abdominal discomfort patient does use his Mylanta to help simethicone was added, clinically stable at the present today on 11/26 patient clinically symptoms are improving a can be discharged home however patient's INR is subtherapeutic again 1.9 today, will continue to bridge her with a Lovenox and once her INR is therapeutic for 2 days will discharge the patient home on her Coumadin dose, on 11/25 patient completed 7 days of IV antibiotics., patient denies nausea or vomiting, have also improved and able to tolerate her diet (2) Vomiting: Qualifiers: Nausea presence: with nausea Vomiting Intractability: unspecified Vomiting type: unspecified Qualified Code(s): R11.2 - Nausea with vomiting, unspecified Code(s): R11.10 - Vomiting, unspecified Status: Acute Assessment and Plan: Continue with IV fluids overnight patient is tolerating oral intake. Continue with Zofran. (3) Factor 5 Leiden mutation, heterozygous: Code(s): D68.51 - Activated protein C resistance Status: Chronic Assessment and Plan: Patient is chronically on Coumadin and her INR was on 11/17 2.0. Continue with her Coumadin and check daily PT INR. today patient's INR is 1.4 will continue Coumadin and bridge the patient with Lovenox (4) Restless leg syndrome: Code(s): G25.81 - Restless legs syndrome Status: Chronic Assessment and Plan: Continue with Requip. The patient stated that the SCDs help. (5) Chronic back pain: Code(s): M54.9 - Dorsalgia, unspecified; G89.29 - Other chronic pain Status: Chronic Assessment and Plan: Continue with her Percocet she is able to tolerate them. (6) Parkinsons disease: Code(s): G20 - Parkinson's disease Status: Chronic Assessment and Plan: Continue with levodopa carbidopa Subjective Date/time seen: 11/27/19 12:15 patient is 69-year-old female presented with complaint of nausea and vomiting is found to have a UTI urine culture is growing E coli sensitive to Rocephin and being treated with Rocephin will continue, also has a history for she what she described as a gas which cause her abdominal discomfort patient does use his Mylanta to help simethicone was added, clinically stable at the present today on 11/26 patient clinically symptoms are improving a can be discharged home however patient's INR is subtherapeutic again 1.9 today, will continue to bridge her with a Lovenox and once her INR is therapeutic for 2 days will discharge the patient home on her Coumadin dose, on 11/25 patient completed 7 days of IV antibiotics., patient denies nausea or vomiting, have also improved and able to tolerate her diet Review of Systems Review of Systems: All systems reviewed & are unremarkable except as noted in HPI and below Exam Const: General: comfortable and no acute distress HENMT: General nose exam: Normal nares present Mouth: Yes moist mucous membranes Eyes: General: appearance normal, both eyes and all related structures Sclera: sclerae normal Neck: Neck: supple Resp: Effort & Inspection: normal respiratory effort Auscultation: clear to auscultation bilaterally Cardio: Rate: re
[2019-11-27 14:00] VITALS: BP 109/71; PULSE 54; RESP 15; TEMP 36.8; O2SAT 98
[2019-11-27] MEDS: WARFARIN (*PBKC) 4 MG TABLET 8 MG PO (17:07)
[2019-11-27] MEDS: WARFARIN (*PBKC) 1 MG TABLET PO (17:08)
[2019-11-27 22:00] VITALS: BP 122/64; PULSE 56; RESP 20; TEMP 37.1; O2SAT 97
[2019-11-28 05:14] LABS: Hemoglobin 11.4 g/dL (12.0-15.0); Mean Corpuscular HGB Conc 33.5 g/dl (32-36); Mean Corpuscular Hemoglobin 30.9 pg (26-34); Mean Corpuscular Volume 92.1 fl (80-100); Mean Platelet Volume 9.5 fl (7.4-10.4); Platelet Count Result 215 k/mm3 (150-375); Red Blood Count 3.69 M/mm3 (4.2-5.4); Red Cell Distribution Width 13.2 % (11.5-14.5); White Blood Count 5.5 K/mm3 (4.5-10.0)
[2019-11-28 05:24] LABS: INR 1.7; Prothrombin Time 19.9 Seconds (11.1-14.7)
[2019-11-28 05:25] LABS: Anion Gap 3 mmol/L (8-16); Blood Urea Nitrogen 12 mg/dL (7-17); Carbon Dioxide 27 mmol/L (22-30); Chloride 105 mmol/L (98-107); Estimated CRCL calculation 62 ml/min; Estimated Glomerular Filt Rate > 60; Glucose 95 mg/dL (65-105); Potassium 4.1 mmol/L (3.4-5.0); Sodium 135 mmol/L (137-145)
[2019-11-28 06:00] VITALS: BP 125/73; PULSE 51; RESP 18; TEMP 36.4; O2SAT 97
[2019-11-28] MEDS: CARBIDOPA/LEVODOPA 25/250 MG TABLET 1 TABLET PO ×4 (09:19→21:04)
[2019-11-28] MEDS: diphenhydrAMINE HCl CAP 25 MG CAPSULE PO (09:20)
[2019-11-28] MEDS: ENOXAPARIN 80 MG/0.8 ML SYRINGE 65 MG SUB-Q ×2 (09:20→21:03)
[2019-11-28] MEDS: DOCUSATE SODIUM 100 MG CAPSULE 200 MG PO (09:20)
[2019-11-28] MEDS: PRIMIDONE 50 MG TABLET PO ×2 (09:20→16:36)
[2019-11-28] MEDS: rOPINIRole HCL 1 MG TABLET 5 MG PO ×4 (09:20→21:04)
[2019-11-28] MEDS: TIMOLOL MALEATE 0.5% OP SOLN 5 ML BOTTLE 1 DROP LEFT EYE (09:21)
[2019-11-28] MEDS: SIMETHICONE 125 MG CHEW TAB PO ×4 (09:21→21:04)
--- NOTE | 2019-11-28 11:04 | PCNWS ---
Weekly nutritional screen. Patient is tolerating current diet with adequate intake. No weight loss reported. No nutritional needs at this time.
--- NOTE | 2019-11-28 12:25 | PM.IMPN ---
Progress Note: A&P Assessment and Plan (1) Urinary tract infection: Qualifiers: Hematuria presence: without hematuria Urinary tract infection type: site unspecified Qualified Code(s): N39.0 - Urinary tract infection, site not specified Code(s): N39.0 - Urinary tract infection, site not specified Status: Acute Assessment and Plan: urine culture pending and will check a blood cultures well. Patient was started on Rocephin. 11/28/19 12:25 urine culture pending and will check a blood cultures well. Patient was started on Rocephin. patient is 69-year-old female presented with complaint of nausea and vomiting is found to have a UTI urine culture is growing E coli sensitive to Rocephin and being treated with Rocephin will continue, also has a history for she what she described as a gas which cause her abdominal discomfort patient does use his Mylanta to help simethicone was added, clinically stable at the present today on 11/27 patient clinically symptoms are improving a can be discharged home however patient's INR is subtherapeutic again 1.7 today she has been 1.9 for last two days and hoping she would be thearuputic today however her INR went down to 1.7, she has been taking 9mg daily will increase to 11.5mg daily,will continue to bridge her with a Lovenox and once her INR is therapeutic for 2 days will discharge the patient home on her Coumadin dose, on 11/25 patient completed 7 days of IV antibiotics., patient denies nausea or vomiting, have also improved and able to tolerate her diet (2) Vomiting: Qualifiers: Nausea presence: with nausea Vomiting Intractability: unspecified Vomiting type: unspecified Qualified Code(s): R11.2 - Nausea with vomiting, unspecified Code(s): R11.10 - Vomiting, unspecified Status: Acute Assessment and Plan: Continue with IV fluids overnight patient is tolerating oral intake. Continue with Zofran. (3) Factor 5 Leiden mutation, heterozygous: Code(s): D68.51 - Activated protein C resistance Status: Chronic Assessment and Plan: Patient is chronically on Coumadin and her INR was on 11/17 2.0. Continue with her Coumadin and check daily PT INR. today patient's INR is 1.4 will continue Coumadin and bridge the patient with Lovenox (4) Restless leg syndrome: Code(s): G25.81 - Restless legs syndrome Status: Chronic Assessment and Plan: Continue with Requip. The patient stated that the SCDs help. (5) Chronic back pain: Code(s): M54.9 - Dorsalgia, unspecified; G89.29 - Other chronic pain Status: Chronic Assessment and Plan: Continue with her Percocet she is able to tolerate them. 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 Subjective Date/time seen: 11/28/19 12:25 urine culture pending and will check a blood cultures well. Patient was started on Rocephin. patient is 69-year-old female presented with complaint of nausea and vomiting is found to have a UTI urine culture is growing E coli sensitive to Rocephin and being treated with Rocephin will continue, also has a history for she what she described as a gas which cause her abdominal discomfort patient does use his Mylanta to help simethicone was added, clinically stable at the present today on 11/27 patient clinically symptoms are improving a can be discharged home however patient's INR is subtherapeutic again 1.7 today she has been 1.9 for last two days and hoping she would be thearuputic today however her INR went down to 1.7, she has been taking 9mg daily will increase to 11.5mg daily,will continue to bridge her with a Lovenox and once her INR is therapeutic for 2 days will discharge the patient home on her Coumadin dose, on 11/25 patient completed 7
[2019-11-28] MEDS: oxyCODONE/ACETAMINOPHEN 5-325 MG TABLET 1 TABLET PO (13:22)
--- NOTE | 2019-11-28 13:25 | PC.NURSE ---
Patient asked me to assess her RLQ where she has a hardened area under noted bruising from Lovenox injections. Patient denied pain or tenderness but stated she noted there was a hardened raised area there and was concerned. Called Dr. Montalvo and reported same to him. Orders received for abdominal ultrasound to further assess area.
[2019-11-28 14:00] VITALS: BP 93/58; PULSE 54; RESP 20; TEMP 36.4; O2SAT 97
[2019-11-28] MEDS: WARFARIN (*PBKC) 2.5 MG TABLET PO (16:37)
[2019-11-28] MEDS: WARFARIN (*PBKC) 4 MG TABLET 8 MG PO (17:22)
[2019-11-28 22:00] VITALS: BP 119/73; PULSE 57; RESP 18; TEMP 36.5; O2SAT 97
[2019-11-29 06:00] VITALS: BP 129/60; PULSE 50; RESP 18; TEMP 37; O2SAT 96
[2019-11-29 08:07] LABS: INR 1.8; Prothrombin Time 20.3 Seconds (11.1-14.7)
[2019-11-29] MEDS: ENOXAPARIN 80 MG/0.8 ML SYRINGE 65 MG SUB-Q (08:29)
[2019-11-29] MEDS: CARBIDOPA/LEVODOPA 25/250 MG TABLET 1 TABLET PO ×2 (08:29→13:16)
[2019-11-29] MEDS: DOCUSATE SODIUM 100 MG CAPSULE 200 MG PO (08:29)
[2019-11-29] MEDS: SIMETHICONE 125 MG CHEW TAB PO ×2 (08:30→13:16)
[2019-11-29] MEDS: rOPINIRole HCL 1 MG TABLET 5 MG PO ×2 (08:30→13:16)
[2019-11-29] MEDS: PRIMIDONE 50 MG TABLET PO (08:30)
[2019-11-29] MEDS: TIMOLOL MALEATE 0.5% OP SOLN 5 ML BOTTLE 1 DROP LEFT EYE (08:32)
[2019-11-29] MEDS: diphenhydrAMINE HCl CAP 25 MG CAPSULE PO (08:38)
--- NOTE | 2019-11-29 12:13 | PM.DS ---
DS: Admitting Diagnosis Admitting Diagnosis Admitting Diagnosis: Urinary tract infection/vomiting DS: Discharge Diagnosis Discharge Diagnosis (1) Urinary tract infection: Qualifiers: Hematuria presence: without hematuria Urinary tract infection type: site unspecified Qualified Code(s): N39.0 - Urinary tract infection, site not specified Code(s): N39.0 - Urinary tract infection, site not specified Status: Acute Assessment and Plan: urine culture pending and will check a blood cultures well. Patient was started on Rocephin. 11/28/19 12:25 urine culture pending and will check a blood cultures well. Patient was started on Rocephin. patient is 69-year-old female presented with complaint of nausea and vomiting is found to have a UTI urine culture is growing E coli sensitive to Rocephin and being treated with Rocephin will continue, also has a history for she what she described as a gas which cause her abdominal discomfort patient does use his Mylanta to help simethicone was added, clinically stable at the present today on 11/27 patient clinically symptoms are improving a can be discharged home however patient's INR is subtherapeutic again 1.7 today she has been 1.9 for last two days and hoping she would be thearuputic today however her INR went down to 1.7, she has been taking 9mg daily will increase to 11.5mg daily,will continue to bridge her with a Lovenox and once her INR is therapeutic for 2 days will discharge the patient home on her Coumadin dose, on 11/25 patient completed 7 days of IV antibiotics., patient denies nausea or vomiting, have also improved and able to tolerate her diet (2) Vomiting: Qualifiers: Nausea presence: with nausea Vomiting Intractability: unspecified Vomiting type: unspecified Qualified Code(s): R11.2 - Nausea with vomiting, unspecified Code(s): R11.10 - Vomiting, unspecified Status: Acute Assessment and Plan: Continue with IV fluids overnight patient is tolerating oral intake. Continue with Zofran. (3) Factor 5 Leiden mutation, heterozygous: Code(s): D68.51 - Activated protein C resistance Status: Chronic Assessment and Plan: Patient is chronically on Coumadin and her INR was on 11/17 2.0. Continue with her Coumadin and check daily PT INR. today patient's INR is 1.4 will continue Coumadin and bridge the patient with Lovenox (4) Restless leg syndrome: Code(s): G25.81 - Restless legs syndrome Status: Chronic Assessment and Plan: Continue with Requip. The patient stated that the SCDs help. (5) Chronic back pain: Code(s): M54.9 - Dorsalgia, unspecified; G89.29 - Other chronic pain Status: Chronic Assessment and Plan: Continue with her Percocet she is able to tolerate them. (6) Parkinsons disease: Code(s): G20 - Parkinson's disease Status: Chronic Assessment and Plan: Continue with levodopa carbidopa DS: Summary Hospital Course Reason for hospitalization: Chief complaint: Urinary tract infection/vomiting Narrative: Francisco Qiu is a 69 year old female who had a laparoscopic hysterectomy due to uterine prolapse and a robotic assisted laparoscopic sacral colpopexy with bladder sling on 11/07/2019. The patient has chronic back pain and has been on Percocets. The patient stated that last night she did not sleep very well and was having a lot of discomfort in her right flank area. She was not having any urinary symptoms other than the right flank pain. She has had approximately 3 days ago she was checked in the office and did not have urinary tract infection at that time. The patient stated that she had been vomiting most of the night. I explained that the Percocets can make her sick to her stomach which she tells me that she has been on Percocets chronically. CT of the abdomen was read as extensive subcutaneous emphysema of the chest and abdominal mora. L
== END 2019-11-29 14:30 | disposition home or self-care (01) | DRG 690 ==
LOC: ANHED 14:15 → ANH2MED 14:37
PROVIDERS: Emergency Medicine; Internal Medicine; Nurse Practitioner; Admitting Provider Internal Medicine; Emergency Provider Emergency Medicine; PCP Family Medicine; Visit Provider Family Medicine
DX: N39.0 Urinary tract infection, site not specified (principal); D68.51 Activated protein C resistance; G20 Parkinson's disease; R11.2 Nausea with vomiting, unspecified; B96.20 Unspecified Escherichia coli [E. coli] as the cause of diseases classified elsewhere; Z98.49 Cataract extraction status, unspecified eye; G25.81 Restless legs syndrome; M54.9 Dorsalgia, unspecified; G89.29 Other chronic pain; Z66 Do not resuscitate; Z79.01 Long term (current) use of anticoagulants; Z79.899 Other long term (current) drug therapy; Z86.718 Personal history of other venous thrombosis and embolism; Z86.73 Personal history of transient ischemic attack (TIA), and cerebral infarction without residual deficits; Z87.891 Personal history of nicotine dependence; Z90.710 Acquired absence of both cervix and uterus; Z94.7 Corneal transplant status; Z98.890 Other specified postprocedural states
CPT/HCPCS: 36415; 74177; 76705; 80048; 80053; 81001; 83690; 83735; 84439; 84443; 84480; 85025; 85027; 85610; 85730; 87040; 87077; 87086; 87088; 87186; 96361; 96365; 96366; 96372; 96375; 96376; 97161; 97165; 99285; A9270; G0378; J0131; J0696; J1650; J2405; J7030; Q9967

== ENCOUNTER 2020-02-19 10:26 | Emergency (ER) | payer MEDICARE, OTHER, SELFPAY ==
--- NOTE | ~2020-02-19 | CT_ITS ---
EXAMINATION: CT abdomen pelvis w con DATE: 02/19/2020 12:32 INDICATION: Upper abdominal pain and vomiting TECHNIQUE: Computed tomography (CT) of the abdomen and pelvis was performed with 100 mL Omnipaque-350 intravenous contrast. Automated exposure control and iterative reconstruction technique were employe d. The dose-length product was 457.40 mGy-cm. COMPARISON: 12/18/2019 FINDINGS: Mild atelectasis at the bilateral lower lobes, lingula and right middle lobe. Heart size is normal. N o pericardial or pleural effusion. Large sliding-type hiatal hernia with organoaxial volvulus. There appears to be focal wall thickening at the gastroesophageal junction. Diffuse hepatic steatosis. Gall bladder, spleen, pancreas and right adrenal gland are normal. 2.2 cm left adrenal nodule. Bilateral r enal cysts the larger on the right measuring 4.8 cm the smaller on the left measuring 6 mm. Unchanged 4 mm nonobstructing stone at a lower pole calyx of the left kidney. No ureteral stone or hydronephro sis on either the left or right. Bowels including the appendix are normal. The uterus is not identifi ed and has likely been surgically resected. Bladder is normal. No free intraperitoneal gas or fluid. No pathologically enlarged abdominal or pelvic lymphadenopathy. Focal kyphosis centered at a chronic T9 burst fracture with 80% anterior vertebral body height loss and minimal retropulsion. Additional c hronic L5 burst fracture with 40% posterior vertebral body height loss and 4 mm retropulsion. No inte rval change in a more recent-appearing T12 burst fracture with 20% central vertebral body height loss and a couple millimeter retropulsion. IMPRESSION: 1. Large hiatal hernia with focal wall thickening at the gastroesophageal junction. Would recommend f urther evaluation with endoscopy to assess for malignancy. 2. Diffuse hepatic steatosis. 3. Unchanged 2.2 cm left adrenal nodule which in the absence of known history of malignancy is statis tically most likely to represent an adenoma. 4. 1 mm nonobstructing stone at the lower pole of the left kidney. 5. No interval change in chronic burst fractures at L5, T12 the most severely at T9. Reviewed, dictated and finalized at location A. 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 Large hiatal hernia with focal wall thickening at the gastroesophageal junct ion. Would recommend further evaluation with endoscopy to assess for malignancy . 2. Diffuse hepatic steatosis. 3. Unchanged 2.2 cm left adrenal nodule which in the absence of known history o f malignancy is statistically most likely to represent an adenoma. 4. 1 mm nonobstructing stone at the lower pole of the left kidney. 5. No interval change in chronic burst fractures at L5, T12 the most severely a t T9.
[2020-02-19 10:36] VITALS: BP 90/70; PULSE 60; RESP 20; TEMP 36.9; O2SAT 98
--- NOTE | 2020-02-19 10:54 | ED.NAVMDI ---
HPI - Nausea/Vomiting/Diarrhea General Chief complaint: Nausea/Vomiting/Diarrhea Stated complaint: N/V Time Seen by Provider: 02/19/20 10:44 Source: patient Mode of arrival: ambulatory Limitations: no limitations History of Present Illness HPI Narrative: This is a 70-year-old female that presents the emergency department for nausea and vomiting last night. Reports after she ate dinner she started to develop sharp upper abdominal pain. Reports she then had several episodes of vomiting. Reports she saw some pink in her vomit. Reports when she woke up this morning she continued to have abdominal pain which prompted her to be seen. Denies fever, dysuria, hematuria, or diarrhea. Related Data Home Medications Medication Instructions Recorded Confirmed Maxidex 1 drp LEFTEYE EVERY OTHER DAY 11/01/19 11/18/19 TheraTears 1 drp OPHTHALMIC (EYE) QID 11/01/19 11/18/19 carbidopa-levodopa 1 tablet PO QID 11/01/19 11/18/19 diphenhydramine HCl [Benadryl] 25 mg PO QAM 11/01/19 11/18/19 primidone 50 mg PO BID 11/01/19 11/18/19 ropinirole [Requip] 5 mg PO QID 11/01/19 11/18/19 timolol maleate 1 drp LEFTEYE DAILY 11/01/19 11/18/19 warfarin 8 mg PO DAILY 11/01/19 11/18/19 docusate sodium [Colace] 200 mg PO QAM 11/18/19 11/18/19 Allergies Allergy/AdvReac Type Severity Reaction Status Date / Time No Known Allergies Allergy Verified 02/19/20 10:39 Review of Systems Review of Systems: Narrative: CONSTITUTIONAL: Denies fever ENT: Denies rhinorrhea, congestion, sore throat CARDIOVASCULAR: Denies chest pain RESPIRATORY: Denies cough or dyspnea. GASTROINTESTINAL: Reports abdominal pain, nausea, vomiting. Denies diarrhea. GENITOURINARY: Denies dysuria or hematuria. All systems reviewed & are unremarkable except as noted in HPI and below PMFSH Past Medical History Medical History (Updated 02/19/20 @ 13:48 by Beverly Ward PA-C) Arthritis Back pain Chronic back pain DDD (degenerative disc disease) DVT (deep venous thrombosis) Factor 5 Leiden mutation, heterozygous On Coumadin Hiatal hernia History of TIA (transient ischemic attack) Parkinsons disease Restless leg syndrome Scoliosis RAMAN (stress urinary incontinence, female) Uterine prolapse Surgical History Surgical History (Updated 11/18/19 @ 20:47 by Jocelynn Cast NP) H/O cataract extraction H/O cystoscopy with bladder sling H/O tubal ligation H/O: hysterectomy 11/07/2019 History of corneal transplant left eye Previous back surgery Family History Family History (Updated 11/18/19 @ 20:49 by Jocelynn Cast NP) Mother Lung cancer Father Lung cancer Sibling Epilepsy 1 sister Sibling Parkinsons disease 2 sisters Sibling Diabetes mellitus 2 brothers Social History Social History (Updated 11/18/19 @ 20:52 by Jocelynn Cast NP) Social History: the patient desires to be a DNR. I explained to her with this mid she does not want to be resuscitated at all. She has 4 children and she is disabled. She has been on disability since 2009. Patient used to smoke and she quit in 0 7. She denies any alcohol marijuana or illicit drugs. She tried marijuana in the past but it made her symptoms worse. She is and then . Her daughter arun varma Is her durable power civil rights attorney for healthcare. she lives home alone with her cat. Smoking packs per day: 1 Smoking cigarettes per day: 20.0 Years smoked: 30 Smoking pack-years: 30.00 Smoking status: Former smoker Smoking end date: 03/09/06 Alcohol intake: former Substance use: former Substance use type: marijuana Other substance usage details: 6-7 months ago, 1 puff per week Gender identity (if verbalized by the patient): Female Spiritual care concerns: No Exam Narrative: Exam Narrative: GENERAL: Well-appearing, well-nourished, and in no acute distress. HEAD: Normocephalic, atraumatic. EYES: EOMI. ENT: Mucous membranes moist. Oropharynx witho
[2020-02-19 11:16] LABS: Basophils Percent Auto 0.3 % (0.2-1.2); Eosinophils Absolute Auto 0.1 K/mm3 (0-0.3); Eosinophils Percent Auto 1.5 % (0-4.4); Hematocrit 39.6 % (37.0-47.0); Hemoglobin 13.2 g/dL (12.0-15.0); Immature Granulocyte Absolute 0.02 K/mm3 (0.00-0.031); Immature Granulocyte Percent A 0.3 % (0-0.5); Lymphocytes Absolute Auto 1.79 K/mm3 (0.9-3.2); Lymphocytes Percent Auto 25.1 % (18.3-44.2); Mean Corpuscular HGB Conc 33.3 g/dl (32-36); Mean Corpuscular Hemoglobin 30.8 pg (26-34); Mean Corpuscular Volume 92.3 fl (80-100); Mean Platelet Volume 9.8 fl (7.4-10.4); Monocytes Absolute Auto 0.5 K/mm3 (0.1-0.6); Monocytes Percent Auto 6.9 % (2.6-8.5); Neutrophils Absolute Auto 4.7 K/mm3 (1.3-6.7); Neutrophils Percent Auto 65.9 % (45.5-73.1); Platelet Count Result 201 k/mm3 (150-375); Red Blood Count 4.29 M/mm3 (4.2-5.4); Red Cell Distribution Width 13.2 % (11.5-14.5); White Blood Count 7.1 K/mm3 (4.5-10.0)
[2020-02-19 11:21] LABS: Add Urine Microscopic? YES; Appearance Urine Clear (Clear); Bilirubin Urine Negative (Negative); Blood Urine Negative (Negative); Color Urine Yellow (Yellow); Glucose Urine UA Negative (Negative); Ketones Urine Trace mg/dL (Negative); Leukocyte Esterase Ur Negative LEU/UL (Negative); Mucus Urine Rare /lpf; Nitrate Urine Negative (Negative); Protein Urine 1+ mg/dL (Negative); Squamous Epithelial Cell Urine Few /hpf (Few); Transitional Epi Cells Urine Rare /hpf (None Seen); Urobilinogen Urine Negative mg/dL (<2.0); WBC Urine 0-3 /hpf
[2020-02-19] MEDS: SODIUM CHLORIDE 0.9% IV 1,000 ML 999 ML IV CONT (11:26)
[2020-02-19 11:27] LABS: INR 2.9; Prothrombin Time 31.2 Seconds (11.1-14.7)
[2020-02-19 11:28] LABS: Partial Thromboplastin Time 38.8 SECONDS (22.3-36.8)
[2020-02-19] MEDS: ONDANSETRON INJ 4 MG/2 ML VIAL IV PUSH (11:28)
[2020-02-19 11:30] LABS: Lactic Acid Reflex 0.6 mmol/L (0.7-2.1)
[2020-02-19 11:31] LABS: Albumin Level 3.9 g/dL (3.5-5.1); Alkaline Phosphatase 65 U/L (38-126); Anion Gap 5 mmol/L (8-16); Aspartate Amino Transferase 22 U/L (14-36); Bilirubin,Total 0.8 mg/dL (0.2-1.3); Blood Urea Nitrogen 14 mg/dL (7-17); Calcium 9.5 mg/dL (8.4-10.2); Carbon Dioxide 27 mmol/L (22-30); Chloride 105 mmol/L (98-107); Estimated CRCL calculation 53 ml/min; Estimated Glomerular Filt Rate > 60; Glucose 99 mg/dL (65-105); Lipase 71 U/L (23-300); Potassium 4.1 mmol/L (3.4-5.0); Sodium 137 mmol/L (137-145)
[2020-02-19 11:32] VITALS: BP 109/72; PULSE 52; RESP 19; TEMP 36.7; O2SAT 94
[2020-02-19] MEDS: PANTOPRAZOLE SODIUM IV 40 MG VIAL IV PUSH (11:32)
[2020-02-19 12:04] VITALS: BP 101/68; PULSE 44; RESP 18; TEMP 36.8; O2SAT 96
[2020-02-19 12:24] LABS: Alanine Aminotransferase < 4 U/L (4-35)
--- NOTE | 2020-02-19 13:00 | PC.NURSE ---
Patient requesting to take her home parkinson's medication. EDPA states to wait for CT results prior to allowing any PO intake.
[2020-02-19 13:32] VITALS: BP 122/68; PULSE 56; RESP 23; TEMP 36.4; O2SAT 95
--- NOTE | 2020-02-19 13:50 | PC.NURSE ---
Patient reports that she was seen yesterday and provided with a prescription for bactrim due to infection to tip of right middle finger. States that she has not been able to take medication today due to nausea. EDP was made aware.
[2020-02-19 14:21] VITALS: BP 152/93; PULSE 75; RESP 20; TEMP 36.9; O2SAT 96
== END 2020-02-19 14:45 | disposition home or self-care (01) ==
PROVIDERS: Physician Assistant; Emergency Provider Emergency Medicine; PCP Family Medicine
DX: K29.00 Acute gastritis without bleeding (principal); L03.011 Cellulitis of right finger; D68.51 Activated protein C resistance; G20 Parkinson's disease; G25.81 Restless legs syndrome; Z66 Do not resuscitate; M19.90 Unspecified osteoarthritis, unspecified site; Z86.718 Personal history of other venous thrombosis and embolism; Z79.01 Long term (current) use of anticoagulants; Z86.73 Personal history of transient ischemic attack (TIA), and cerebral infarction without residual deficits; Z94.7 Corneal transplant status; Z98.49 Cataract extraction status, unspecified eye; Z87.891 Personal history of nicotine dependence; K76.0 Fatty (change of) liver, not elsewhere classified; K44.9 Diaphragmatic hernia without obstruction or gangrene; E27.9 Disorder of adrenal gland, unspecified; N20.0 Calculus of kidney
CPT/HCPCS: 10060; 36415; 74177; 80053; 81001; 83605; 83690; 85025; 85610; 85730; 96361; 96374; 96375; 99284; C9113; J2405; J7030; Q9967

== ENCOUNTER 2020-06-11 17:45 | Emergency (ER) | payer MEDICARE, OTHER, SELFPAY ==
--- NOTE | ~2020-06-11 | CT_ITS ---
EXAMINATION: CT brain wo con INDICATION: Head injury COMPARISON: None TECHNIQUE: Standard unenhanced head CT. The dose-length product (DLP) was 908.00 mGy-cm. The mA was a djusted according to patient size. Iterative reconstruction technique was employed. FINDINGS: Motion artifact somewhat limits examination. There is no acute intraparenchymal hemorrhage. No evidence of mass lesion. No evidence of acute infarction. There is mild periventricular and subco rtical hypodensity probably related to small vessel ischemic disease. There is mild prominence of the sulci and ventricles related to cerebral atrophy. Intracranial calcified cerebral atherosclerosis is noted. There are no extra-axial collections. There is no mass effect or midline shift. Changes in th e globes are likely from ocular lens surgery. The visualized sinuses and mastoid air cells are well aerated. IMPRESSION: 1. No acute intracranial abnormality, sensitivity somewhat limited by motion artifact. 2. Age related findings. Reviewed, dictated and finalized at location A. IMPRESSION: 1. No acute intracranial abnormality, sensitivity somewhat limited by motion ar tifact. 2. Age related findings.
--- NOTE | ~2020-06-11 | CT_ITS ---
EXAMINATION: CT cervical spine wo con DATE: 06/11/2020 19:58 INDICATION: Head injury TECHNIQUE: Computed tomography (CT) of the cervical spine was performed without intravenous contrast. The dose-length product (DLP) was 209.38 mGy-cm. Automated exposure control and iterative reconstruc tion technique were employed. COMPARISON: None FINDINGS: Motion artifact limits the examination. There is a questionable fracture at the tip of the C5 spinous process. No additional cervical spine fracture is identified. Bone alignment is normal. Th ere is mild loss of intervertebral disc space height at C5-6. The odontoid is intact. IMPRESSION: 1. Possible fracture at the tip of the C5 spinous process. Reviewed, dictated and finalized at location A.
[2020-06-11 17:48] VITALS: BP 136/103; PULSE 72; RESP 18; TEMP 36.2; O2SAT 100
[2020-06-11] MEDS: oxyCODONE/ACETAMINOPHEN (*CRX) 5-325 MG TABLET 1 TABLET PO (20:04)
[2020-06-11 20:08] VITALS: BP 103/82; PULSE 112; RESP 22; O2SAT 95
--- NOTE | 2020-06-11 20:08 | ED.GENADULT ---
HPI - General Adult General Chief complaint: Fall <Jeremías Chilel PA-C - Last Filed: 06/11/20 20:13> Stated complaint: fell neck shoulder pain <GUERRERO Garcia Last Filed: 06/11/20 20:13> Time Seen by Provider: 06/11/20 18:51 <GUERRERO Garcia Last Filed: 06/11/20 20:13> Source: patient <GUERRERO Garcia Last Filed: 06/11/20 20:13> Mode of arrival: ambulatory <GUERRERO Garcia Last Filed: 06/11/20 20:13> Limitations: no limitations <GUERRERO Garcia Last Filed: 06/11/20 20:13> History of Present Illness HPI narrative: Patient with history of Parkinson's and back fractures present with chief complaint of pain to the posterior aspect of her head and neck after tripping over her dog and falling. Patient states that she fell on her right side of her face but denies pain to her nose or facial area. She reports the pain is to the posterior aspect of her head and neck. Patient denies pain to her chest, shoulder or any other areas. 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 She denies any loss of consciousness, change in vision or hearing, nausea, vomiting, neurological deficits. Patient reports she normally takes Percocet for back pain due to having a back fracture 3 years ago, but states that she has not taken any today for pain. She denies acute back pain. <Jeremías Chilel PA-C - Last Filed: 06/11/20 20:13> Related Data Home medications: Home Medications Medication Instructions Recorded Confirmed Maxidex 1 drp LEFTEYE EVERY OTHER DAY 11/01/19 11/18/19 TheraTears 1 drp OPHTHALMIC (EYE) QID 11/01/19 11/18/19 carbidopa-levodopa 1 tablet PO QID 11/01/19 11/18/19 diphenhydramine HCl [Benadryl] 25 mg PO QAM 11/01/19 11/18/19 primidone 50 mg PO BID 11/01/19 11/18/19 ropinirole [Requip] 5 mg PO QID 11/01/19 11/18/19 timolol maleate 1 drp LEFTEYE DAILY 11/01/19 11/18/19 warfarin 8 mg PO DAILY 11/01/19 11/18/19 docusate sodium [Colace] 200 mg PO QAM 11/18/19 11/18/19 <Jeremías Chilel PA-C - Last Filed: 06/11/20 20:13> Allergies/adverse reactions: Allergies Allergy/AdvReac Type Severity Reaction Status Date / Time No Known Allergies Allergy Verified 06/11/20 17:51 <Jeremías Chilel PA-C - Last Filed: 06/11/20 20:13> Review of Systems Review of Systems: Narrative: CONSTITUTIONAL: Denies fever, chills, or sweats. EYES: Denies visual changes, redness, or discharge. ENT: Denies rhinorrhea, congestion, sore throat, or otalgia. CARDIOVASCULAR: Denies chest pain, palpitations, or edema. RESPIRATORY: Denies cough or dyspnea. GASTROINTESTINAL: Denies abdominal pain, nausea, vomiting, or diarrhea. GENITOURINARY: Denies dysuria or hematuria. SKIN: Denies rash or itching. MUSCULOSKELETAL: Reports neck pain denies back pain, joint pain, or myalgia. NEUROLOGIC: Reports headache denies numbness, dizziness, or weakness. PSYCHIATRIC: Denies anxiety or depression. <Jeremías Chilel PA-C - Last Filed: 06/11/20 20:13> [facility] Past Medical History Medical History: Medical History (Updated 02/20/20 @ 00:00 by Chaz Patel) Arthritis Back pain Chronic back pain DDD (degenerative disc disease) DVT (deep venous thrombosis) Factor 5 Leiden mutation, heterozygous On Coumadin Hiatal hernia History of TIA (transient ischemic attack) Parkinsons disease Restless leg syndrome Scoliosis RAMAN (stress urinary incontinence, female) Uterine prolapse <Jeremías Chilel PA-C - Last Filed: 06/11/20 20:13> Surgical History Surgical History: Surgical History (Updated 11/18/19 @ 20:47 by Jocelynn Cast NP) H/O cataract extraction H/O cystoscopy with bladder sling H/O tubal ligation H/O: hysterectomy 11/07/2019 History of corneal transplant left eye Previous back surgery <Jeremías Chilel PA-C - Last Filed: 06/11/20 20:13> Family History Family History: Family History (Updated 11/18/19 @ 20:49 by Jocelynn Grajeda
[2020-06-11 22:36] VITALS: BP 117/101; PULSE 54; RESP 20; O2SAT 96
[2020-06-12 00:47] VITALS: BP 119/89; PULSE 69; RESP 18; O2SAT 98
== END 2020-06-12 00:49 | disposition home or self-care (01) ==
PROVIDERS: Emergency Provider Nurse Practitioner; PCP Family Medicine
DX: S12.490A Other displaced fracture of fifth cervical vertebra, initial encounter for closed fracture (principal); D68.51 Activated protein C resistance; G20 Parkinson's disease; G25.81 Restless legs syndrome; Z98.49 Cataract extraction status, unspecified eye; Z86.718 Personal history of other venous thrombosis and embolism; Z86.73 Personal history of transient ischemic attack (TIA), and cerebral infarction without residual deficits; Z94.7 Corneal transplant status; Z66 Do not resuscitate; Z87.891 Personal history of nicotine dependence; W01.0XXA Fall on same level from slipping, tripping and stumbling without subsequent striking against object, initial encounter
CPT/HCPCS: 70450; 72125; 99284; A9270; L0140